=== PATIENT | male | born 1980 | race Caucasian/White ===

== ENCOUNTER 2016-11-14 13:30 | Emergency (ER) | payer OTHER ==
[~2016-11-14] VITALS: Ht 167.6 cm; Wt 104.3 kg
[~2016-11-14 13:30] MED LIST: AC325T PO; ACHD5005 PO; AMOX500C2 PO; CHLO15MO3 PO; CPR500T; CPR500T PO; HYDR-1231 PO; HYDR-229 PO; HYDR1TAB8 OP; NAPR-243 PO; OXYC-12 PO; TRAZ150T42 PO; ZLP10T PO
--- NOTE | 2016-11-14 14:53 | ED GU-Male ---
General Chief Complaint: -Male Stated Complaint: LT GROIN PAIN Nursing Triage Note: Ambulatory to ED 10 with reports of left groin pain x 4 weeks. Patient reports that he saw PCP 2 weeks ago, and was told he had strained his groin and to rest. Patient reports pain is getting worse. Source: patient Exam Limitations: no limitations History of Present Illness Time seen by provider: 14:53 Initial Comments 36-year-old male patient presents to the emergency department complains of left groin pain for 4 weeks. States he was seen by his PCP at [facility] in 2 weeks ago and diagnosed with a left groin strain. Reports pain has progressively gotten worse. Denies any dysuria, frequency, hematuria. Denies any bulging or masses. Works for the [employer] by trade. Does a lot of lifting and bending. Patient does have a history of kidney stones, but states this feels different then kidney stones symptoms. Timing/Duration: getting worse, other (1 month onset) Severity/Quality: sharp (sharp pain with movement), other (aching) Location: groin (left groin) Radiation: scrotal, other (left proximal thigh) Activities at Onset: none Prior Genitourinary Problems: none Modifying Factors: Worsens With Movement Allergies and Home Medications Allergies Coded Allergies: meperidine (Verified Allergy, Unknown, 06/08/06) Home Medications Cyclobenzaprine HCl 10 Mg Tablet, 10 MG PO Q8H PRN for SPASMS, #10 Ref 0 Prescribed by: HOLGER MENA on 11/14/16 1611 Prednisone 20 Mg Tab, 40 MG PO DAILY, #10 Ref 0 Prescribed by: HOLGER MENA on 11/14/16 1611 Tramadol HCl 50 Mg Tablet, 50 MG PO Q4H PRN for pain, #14 Ref 0 Prescribed by: HOLGER MENA on 11/14/16 1612 Constitutional: No chills, No fever, No malaise Respiratory: no symptoms reported Cardiovascular: no symptoms reported Gastrointestinal: No abdominal pain, No diarrhea, No loss of appetite, No nausea, No vomiting Genitourinary: denies burning, denies discharge, denies dysuria, denies frequency, denies flank pain, denies hematuria, pain (left groin pain) Musculoskeletal: No back pain, muscle pain (left proximal thigh) Skin: no symptoms reported Psychiatric/Neurological: Denies Numbness, Denies Paresthesia, Denies Tingling , Denies Weakness All Other Systemes Reviewed Negative Unless Noted: Yes (Negative excepted noted.) Past Oryqspy-Wpizgu-Ogoqhg Hx Patient Social History Alcohol Use: Occasionally Uses Recreational Drug Use: No Smoking Status: Current Everyday Smoker Type Used: Cigarettes 2nd Hand Smoke Exposure: Yes Recent Foreign Travel: No Contact w/Someone Who Travel: No Recent Infectious Disease Expo: No Recent Hopitalizations: Yes Immunizations Up To Date Tetanus Booster (TDap): Less than 5yrs PED Vaccines UTD: Yes Surgeries HX Surgeries: Yes (STONE BASKET x2) Respiratory Hx Respiratory Disorders: No Cardiovascular Hx Cardiac Disorders: Yes Cardiac Disorders: Hypertension Neurological Hx Neurological Disorders: No Reproductive System Hx Reproductive Disorders: No HIV/AIDS: No Genitourinary Hx Genitourinary Disorders: Yes Genitourinary Disorders: Kidney Stones Gastrointestinal Hx Gastrointestinal Disorders: No Musculoskeletal Hx Musculoskeletal Disorders: No Endocrine Hx Endocrine Disorders: No HEENT HX ENT Disorders: No Cancer Hx Cancer: No Psychosocial Hx Psychiatric Problems: No Integumentary HX Skin/Integumentary Disorder: No Blood Transfusions Hx Blood Disorders: No Reviewed Nursing Assessment Reviewed/Agree w Nursing PMH: Yes Family Medical History Significant Family History: No Pertinent Family Hx Physical Exam Vital Signs Vital Sign - Last 12Hours 11/14/16 13:53 Temp 98.5 Pulse 73 Resp 16 B/P (MAP) 148/98 Pulse Ox 98 O2 Delivery Room Air Capillary Refill : Less Than 3 Seconds General Appearance: WD/WN, no apparent distress Neck: supple, normal inspection Cardiovascular: normal peripheral pulses, regular rate, rhythm, no edema, no murmur Respiratory: lungs clear, normal breath sounds, no respiratory distress Gastrointestinal: normal bowel sounds, non tender, soft, no organomegaly, No distended Male: inguinal tenderness (left inguinal tenderness without palpable mass. Very small left inguinal hernia noted. No evidence of obstruction or incarceration.) Back: normal inspection, no CVA tenderness, no vertebral tenderness Extremities: normal range of motion, normal inspection, no pedal edema, normal capillary refill, other (left proximal anterior thigh tender to palpation without evidence of trauma.) Neurologic/Psychiatric: no motor/sensory deficits, alert, normal mood/affect, oriented x 3 Skin: normal color, warm/dry, No rash Progress/Results/Core Measures Results/Orders Lab Results Laboratory Tests Test 11/14/16 15:29 Range/Units Urine Color YELLOW Urine Clarity CLEAR Urine pH 7 5-9 Urine Specific Brilliant 1.015 L 1.016-1.022 Urine Protein 1+ H NEGATIVE Urine Glucose (UA) NEGATIVE NEGATIVE Urine Ketones NEGATIVE NEGATIVE Urine Nitrite NEGATIVE NEGATIVE Urine Bilirubin NEGATIVE NEGATIVE Urine Urobilinogen 4 H NORMAL MG/DL Urine Leukocyte Esterase 1+ H NEGATIVE Urine RBC (Auto) NEGATIVE NEGATIVE Urine RBC RARE /HPF Urine WBC 0-2 /HPF Urine Crystals PRESENT H /LPF Urine Amorphous Sediment FEW MARCIE URATES H /LPF Urine Bacteria NEGATIVE /HPF Urine Casts NONE /LPF Urine Mucus NEGATIVE /LPF Urine Culture Indicated NO My Orders Orders - HOLGER MENA Ibuprofen Tablet (Motrin Tablet) (11/14/16 15:03) Us Abdomen Limited [id number] (11/14/16 15:03) Ua Culture If Indicated (11/14/16 15:07) Vital Signs/I&O Vital Sign - Last 12Hours 11/14/16 11/14/16 13:53 15:21 Temp 98.5 98.5 Pulse 73 Resp 16 B/P (MAP) 148/98 Pulse Ox 98 O2 Delivery Room Air Blood Pressure Mean: 115 Diagnostic Imaging Diagonstic Imaging: Ultrasound Plain Films/CT/US/NM/MRI: abdomen (left groin) Comments FINDINGS: No hernia or fluid collection. Subcentimeter lymph nodes with fatty echogenic jaquan are noted incidentally, not appreciably changed from the remote exam. No suspicious mass or fluid collection. IMPRESSION: There are benign appearing lymph nodes. No hernia, fluid collection, or suspicious mass in the left groin. We note that the old CT does show bilateral nephrolithiasis and, at that exam in 2013, there was an obstructing distal left ureteral stone. Dictated on workstation # [id number] Reviewed: Reviewed by Me (radiology report reviewed by me) Departure Communication Progress Notes Diagnostic findings and laboratory findings discussed with the patient. Patient does now recall having a tick bite just prior to all of these symptoms starting. During the ultrasound patient was noted to be very tender over the enlarged lymph nodes in the left groin. Plan for discharge with Flexeril, prednisone, tramadol, and doxycycline. Patient follow-up with his family care physician for recheck. Impression Impression: Primary Impression: Left inguinal pain Additional Impressions: Inguinal hernia of left side without obstruction or gangrene Tick bite of groin Lymphadenopathy, inguinal Disposition: 01 HOME, SELF-CARE Condition: Improved Departure-Patient Inst. Decision time for Depature: 16:09 Referrals: [facility] (PCP/Family) Primary Care Physician Patient Instructions: Groin Hernia (DC), Groin Strain (DC) Add. Discharge Instructions: All discharge instructions reviewed with patient and/or family. Voiced understanding. Medications as instructed. Tylenol extra strength over-the- counter as directed for pain. Ibuprofen 800 mg by mouth every 8 hours as needed for pain. No lifting, pushing, pulling, bending 5-7 days. Increase activity slowly as tolerated. Return to the emergency department for worsened pain, mass, bulging, inability to urinate, decreased urination, blood in the urine, fever, or any other concerns. Scripts Doxycycline Hyclate (Doxycycline Hyclate) 100 Mg Capsule 100 MG PO BID, #28 CAP 0 Refills Prov: HOLGER MENA 11/14/16 Tramadol HCl (Tramadol HCl) 50 Mg Tablet 50 MG PO Q4H Y for pain, #14 TAB 0 Refills Prov: HOLGER MENA 11/14/16 Prednisone (Prednisone) 20 Mg Tab 40 MG PO DAILY, #10 TAB 0 Refills Prov: HOLGER MENA 11/14/16 Cyclobenzaprine HCl (Cyclobenzaprine HCl) 10 Mg Tablet 10 MG PO Q8H Y for SPASMS, #10 TAB 0 Refills Prov: HOLGER MENA 11/14/16 HOLGER MENA Nov 14, 2016 14:53
[2016-11-14] MEDS ORDERED: IBUPROFEN 800 MG (MOTRIN) TAB PO STA (15:03)
[2016-11-14 15:35] LABS: BILIRUBIN,URINE NEGATIVE (NEGATIVE); KETONES,URINE NEGATIVE (NEGATIVE); LEUKOCYTE ESTERASE ,URINE 1+ (NEGATIVE); NITRITE,URINE NEGATIVE (NEGATIVE); PH,URINE 7 (5-9); PROTEIN,URINE 1+ (NEGATIVE); UROBILINOGEN,URINE 4 MG/DL (NORMAL)
[2016-11-14 15:45] LABS: WBC,URINE 0-2 /HPF
--- NOTE | 2016-11-14 15:57 | Diagnostic Imaging Report ---
PROCEDURE: US Abdomen, limited. TECHNIQUE: Multiple realtime grayscale images were obtained over the abdomen in various projections. INDICATION: Painful lump in the left groin of 4 weeks duration. COMPARISON: No prior exams for comparison. Correlation is made with a CT pelvis of 12/01/2013. FINDINGS: No hernia or fluid collection. Subcentimeter lymph nodes with fatty echogenic jaquan are noted incidentally, not appreciably changed from the remote exam. No suspicious mass or fluid collection. IMPRESSION: There are benign appearing lymph nodes. No hernia, fluid collection, or suspicious mass in the left groin. We note that the old CT does show bilateral nephrolithiasis and, at that exam in 2013, there was an obstructing distal left ureteral stone. Dictated by: Dictated on workstation # [id number]
[2016-11-14] MEDS ORDERED: PRD20T PO (16:11)
[2016-11-14] MEDS ORDERED: CYCL10TA9 PO (16:11)
[2016-11-14] MEDS ORDERED: TRAM50TA2 PO (16:12)
[2016-11-14 16:21] VITALS: BP 144/86
[2016-11-14] MEDS ORDERED: DOXY100C2 PO (16:21)
--- OUTSIDE RECORDS SUMMARY | 2016-11-17 14:57 | XMS REPORT ---
Author Author ERNESTINE WONG [facility] eClinicalWorks Address Unknown Phone Unavailable Care Team Providers Care Pump Stitcher Name Role Phone ERNESTINE WONG CP Unavailable Allergies, Adverse Reactions, Alerts Substance Reaction Event Type Demerol hives Drug Allergy Problems Problem Type Condition Code Onset Dates Condition Status Problem Essential hypertension, benign 401.1 Active Problem Screening examination for pulmonary tuberculosis V74.1 Active Problem Nondependent tobacco use disorder 305.1 Active Assessment Anxiety F41.9 Active Problem Abdominal pain, other specified site 789.09 Active Problem Routine general medical examination at health care facility V70.0 Active Problem Acute sinusitis, unspecified 461.9 Active Problem Anxiety F41.9 Active Problem Anxiety state, unspecified 300.00 Active Problem Abnormal weight gain 783.1 Active Problem Acute pharyngitis 462 Active Problem Unspecified prostatitis 601.9 Active Medications Medication Code System Code Instructions Start Date End Date Status Dosage Lorazepam [facility] [address]-46 0.5 MG Orally Once a day Feb 16, 2015 1 tablet as needed Celexa [facility] [address]-50 20 MG Orally Once a day Feb 16, 2015 1 Fish Oil [facility] [address]-06 1000 MG Orally Once a day 2 capsules Procedures Procedure Coding System Code Date Office Visit, Est Pt., Level 2 CPT-4 03479 Mar 16, 2015 Vital Signs Date/Time: Mar 16, 2015 Temperature 97.8 F Weight 210.6 lbs Height 66 in BMI 33.99 Index Blood Pressure Diastolic 60 mmHg Blood Pressure Systolic 140 mmHg Cardiac Monitoring Heart Rate 82 bpm Results No Known Results Summary Purpose eClinicalWorks Submission
--- OUTSIDE RECORDS SUMMARY | 2016-11-17 14:57 | XMS REPORT | Continuity of Care Document ---
Author Author [facility] Address Unknown Phone Unavailable Allergies Active Description Code Type Severity Reaction Onset Reported/Identified Relationship to Patient Clinical Status Yes meperidine [id number] Drug Allergy Unknown N/A 06/08/2006 Yes Demerol Drug Allergy 03/20/2010 Yes Demerol Drug Allergy N/A N/A 03/20/2010 Medications Problems Date Dx Coded Attending Type Code Diagnosis Diagnosed By 08/06/2009 604.90 EPIDIDYMITIS LEFT 08/06/2009 ERNESTINE WONG MD 604.90 Epididymitis Left 08/06/2009 ERNESTINE WONG MD 604.90 Epididymitis Left 08/06/2009 RONN MAYER APRN 604.90 Epididymitis Left 08/06/2009 VASQUEZ DICKERSON DO 604.90 Epididymitis Left 08/06/2009 ERNESTINE WONG MD 604.90 Epididymitis Left 03/20/2010 V01.84 CONTACT WITH OR EXPOSURE TO MENINGOCOCCUS 03/20/2010 V03.89 MENINGOCOCCAL VACCINE 03/20/2010 ERNESTINE WONG MD V01.84 Contact With Or Exposure To Meningococcus 03/20/2010 ERNESTINE WONG MD V03.89 Meningococcal Vaccine 03/20/2010 ERNESTINE WONG MD V01.84 Contact With Or Exposure To Meningococcus 03/20/2010 ERNESTINE WONG MD V03.89 Meningococcal Vaccine 03/20/2010 RONN MAYER APRN V01.84 Contact With Or Exposure To Meningococcus 03/20/2010 RONN MAYER APRN V03.89 Meningococcal Vaccine 03/20/2010 VASQUEZ DICKERSON DO V01.84 Contact With Or Exposure To Meningococcus 03/20/2010 VASQUEZ DICKERSON DO V03.89 Meningococcal Vaccine 03/20/2010 ERNESTINE WONG MD V01.84 Contact With Or Exposure To Meningococcus 03/20/2010 ERNESTINE WONG MD V03.89 Meningococcal Vaccine 09/27/2010 564.1 IRRITABLE BOWEL SYNDROME 09/27/2010 ERNESTINE WONG MD 564.1 Irritable Bowel Syndrome 09/27/2010 ERNESTINE WONG MD 564.1 Irritable Bowel Syndrome 09/27/2010 RONN MAYER APRN 564.1 Irritable Bowel Syndrome 09/27/2010 VASQUEZ DICKERSON DO 564.1 Irritable Bowel Syndrome 09/27/2010 ERNESTINE WONG MD 564.1 Irritable Bowel Syndrome 11/04/2010 590.2 KIDNEY STONES 11/04/2010 ERNESTINE WONG MD 590.2 Kidney Stones 11/04/2010 ERNESTINE WONG MD 590.2 Kidney Stones 11/04/2010 RONN MAYER APRN 590.2 Kidney Stones 11/04/2010 VASQUEZ DICKERSON DO 590.2 Kidney Stones 11/04/2010 ERNETSINE WONG MD 590.2 Kidney Stones 12/09/2010 592.0 CALCULUS OF KIDNEY 12/09/2010 ERNESTINE WONG MD 592.0 Calculus Of Kidney 12/09/2010 ERNESTINE WONG MD 592.0 Calculus Of Kidney 12/09/2010 RONN MAYER APRN 592.0 Calculus Of Kidney 12/09/2010 VASQUEZ DICKERSON DO 592.0 Calculus Of Kidney 12/09/2010 ERNESTINE WONG MD 592.0 Calculus Of Kidney 01/13/2011 307.42 PERSISTENT DISORDER OF INITIATING OR MAINTAINING SLEEP 01/13/2011 ERNESTINE WONG MD 307.42 Persistent Disorder Of Initiating Or Maintaining Sleep 01/13/2011 ERNESTINE WONG MD 307.42 Persistent Disorder Of Initiating Or Maintaining Sleep 01/13/2011 RONN MAYER APRN 307.42 Persistent Disorder Of Initiating Or Maintaining Sleep 01/13/2011 VASQUEZ DICKERSON DO 307.42 Persistent Disorder Of Initiating Or Maintaining Sleep 01/13/2011 ERNESTINE WONG MD 307.42 Persistent Disorder Of Initiating Or Maintaining Sleep 2012 305.1 NICOTINE DEPENDENCE 2012 401.1 ESSENTIAL HYPERTENSION BENIGN 2012 789.09 flank pain right 2012 ERNESTINE WONG MD 305.1 NICOTINE DEPENDENCE 2012 ERNESTINE WONG MD 401.1 ESSENTIAL HYPERTENSION BENIGN 2012 ERNESTINE WONG MD 789.09 flank pain right 2012 ERNESTINE WONG MD 305.1 NICOTINE DEPENDENCE 2012 ERNESTINE WONG MD 401.1 ESSENTIAL HYPERTENSION BENIGN 2012 ERNESTINE WONG MD 789.09 flank pain right 2012 RONN MAYER APRN R 305.1 NICOTINE DEPENDENCE 2012 RONN MAYER APRN R 401.1 ESSENTIAL HYPERTENSION BENIGN 2012 RONN MAYER APRN R 789.09 flank pain right 2012 DICKERSON DO, VASQUEZ K 305.1 NICOTINE DEPENDENCE 2012 DICKERSON DO, VASQUEZ K 401.1 ESSENTIAL HYPERTENSION BENIGN 2012 DICKERSON DO, VASQUEZ K 789.09 flank pain right 2012 ERNESTINE WONG MD 305.1 NICOTINE DEPENDENCE 2012 ERNESTINE WONG MD 401.1 ESSENTIAL HYPERTENSION BENIGN 2012 ERNESTINE WONG MD 789.09 flank pain right 06/08/2012 ERNESTINE WONG MD 300.00 ANXIETY STATE UNSPECIFIED 06/08/2012 ERNESTINE WONG MD 601.9 PROSTATITIS UNSPECIFIED 06/08/2012 ERNESTINE WONG MD 300.00 ANXIETY STATE UNSPECIFIED 06/08/2012 ERNESTINE WONG MD 601.9 PROSTATITIS UNSPECIFIED 06/08/2012 RONN MAYER APRN R 300.00 ANXIETY STATE UNSPECIFIED 06/08/2012 RONN MAYER APRN R 601.9 PROSTATITIS UNSPECIFIED 06/08/2012 DICKERSON DO, VASQUEZ K 300.00 ANXIETY STATE UNSPECIFIED 06/08/2012 DICKERSON DO, VASQUEZ K 601.9 PROSTATITIS UNSPECIFIED 06/08/2012 ERNESTINE WONG MD 300.00 ANXIETY STATE UNSPECIFIED 06/08/2012 ERNESTINE WONG MD 601.9 PROSTATITIS UNSPECIFIED 06/13/2013 ERNESTINE WONG MD3.1 ABNORMAL WEIGHT GAIN 06/13/2013 RONN MAYER APRN R 783.1 ABNORMAL WEIGHT GAIN 06/13/2013 DICKERSON DO, VASQUEZ K 783.1 ABNORMAL WEIGHT GAIN 06/13/2013 ERNESTINE WONG MD 783.1 ABNORMAL WEIGHT GAIN 01/06/2014 SARAI MAYER APRNIA R 461.9 SINUSITIS ACUTE 01/06/2014 RONN MAYER APRN R 462 ACUTE PHARYNGITIS 01/06/2014 VASQUEZ DICKERSON DO 461.9 SINUSITIS ACUTE 01/06/2014 VASQUEZ DICKERSON DO K 462 ACUTE PHARYNGITIS 01/06/2014 ERNESTINE WONG MD 461.9 SINUSITIS ACUTE 01/06/2014 ERNESTINE WONG MD 46Zoltan ACUTE PHARYNGITIS 03/14/2014 VASQUEZ DICKERSON DO V74.1 TB SCREENING 03/14/2014 ERNESTINE WONG MD V74.1 TB SCREENING 03/27/2014 ERNESTINE WONG MD V70.0 ROUTINE GENERAL MEDICAL EXAMINATION AT A HEALTH CARE FACILITY 07/08/2014 HOLGER DINERO Ot 338.18 OTHER ACUTE POSTOPERATIVE PAIN 07/08/2014 HOLGER DINERO Ot 522.9 PULP/PERIAPICAL DIS NEC Procedures Code [place] [address] UA LONG DIP 05/[address] ABDOMEN & PELVIS STONE SEARCH 06/09/2012 Urology Jun Ansari 59766 ROUTINE VENIPUNCTURE 06/13/2013 15351 CMP 06/13/2013 [id number] GFR CALC (RESULT ONLY) 06/13/2013 89058 TSH 06/13/2013 67609 STREP A (IN-HOUSE) 01/06/2014 83409 TB TEST INTRADERMAL 03/14/2014 Results Test Result Range Complete urinalysis with reflex to culture - 11/14/16 15:29 Urine color determination YELLOW NRG Urine clarity determination CLEAR NRG Urine pH measurement by test strip 7 5- 9 Specific gravity of urine by test strip 1.015 1.016-1.022 Urine protein assay by test strip, semi-quantitative 1+ NEGATIVE Urine glucose detection by automated test strip NEGATIVE NEGATIVE Erythrocytes detection in urine sediment by light microscopy NEGATIVE NEGATIVE Urine ketones detection by automated test strip NEGATIVE NEGATIVE Urine nitrite detection by test strip NEGATIVE NEGATIVE Urine total bilirubin detection by test strip NEGATIVE NEGATIVE Urine urobilinogen measurement by automated test strip (mass/volume) 4 mg/dL NORMAL Urine leukocyte esterase detection by dipstick 1+ NEGATIVE Automated urine sediment erythrocyte count by microscopy (number/high power field) RARE NRG Automated urine sediment leukocyte count by microscopy (number/high power field ) [HPF] NRG Bacteria detection in urine sediment by light microscopy NEGATIVE NRG Crystals detection in urine sediment by light microscopy PRESENT NRG Casts detection in urine sediment by light microscopy NONE NRG Mucus detection in urine sediment by light microscopy NEGATIVE NRG Complete urinalysis with reflex to culture NO NRG Amorphous sediment detection in urine sediment by light microscopy FEW MARCIE URATES NRG Encounters ACCT No. Visit Date/Time Discharge Status Pt. Type Provider Facility Loc./Unit Complaint [id number] 03/27/2014 15:59:00 03/27/2014 23: 59:59 CLS Outpatient ERNESTINE WONG MD [id number] 03/14/2014 12:26:00 03/14/2014 23: 59:59 CLS Outpatient VASQUEZ DICKERSON DO [id number] 01/06/2014 12:11:00 01/06/2014 23: 59:59 CLS Outpatient RONN MAYER APRN [id number] 06/13/2013 11:21:00 06/13/2013 23: 59:59 CLS Outpatient ERNESTINE WONG MD [id number] 06/08/2012 16:22:00 06/08/2012 23: 59:59 CLS Outpatient ERNESTINE WONG MD [id number] 2012 14:50:00 2012 23: 59:59 CLS Outpatient
--- OUTSIDE RECORDS SUMMARY | 2016-11-17 14:57 | XMS REPORT ---
Author MARIA DE JESUS Davis [facility] eClinicalWorks Address Unknown Phone Unavailable Care Team Providers Care Implementation Coordinator Name Role Phone MARIA DE JESUS HORN CP Unavailable Allergies, Adverse Reactions, Alerts Substance Reaction Event Type Demerol hives Drug Allergy Problems Problem Type Condition Code Onset Dates Condition Status Problem Essential hypertension, benign 401.1 Active Problem Screening examination for pulmonary tuberculosis V74.1 Active Problem Nondependent tobacco use disorder 305.1 Active Assessment Acute bilateral thoracic back pain M54.6 Active Problem Abdominal pain, other specified site [...] Instructions Start Date End Date Status Dosage Cyclobenzaprine HCl [facility] [address]-43 10 mg Orally 2 times a day (will make drowsy) Apr 09, 2016 Apr 19, 2016 1 tablet Ibuprofen [facility] [place] [address]-45 800 MG Orally Three times a day Apr 09, 2016 Apr 19, 2016 1 tablet Procedures Procedure Coding System Code Date THER/PROPH/DIAG INJ, SC/IM CPT-4 28188 Apr 09, 2016 Office Visit, Est Pt., Level 3 CPT-4 69810 Apr 09, 2016 TORADOL (IM) 15 MG/ML (UP TO 15 MG) CPT-4 J1885 Apr 09, 2016 Vital Signs Date/Time: Apr 09, 2016 Cardiac Monitoring Heart Rate 104 bpm Weight 225.6 lbs Height 66 in BMI 36.41 Index Blood Pressure Diastolic 92 mmHg Blood Pressure Systolic 150 mmHg Results No Known Results Summary Purpose eClinicalWorks Submission
== END 2016-11-14 16:21 | disposition home or self-care (01) ==
LOC: EDUNIT# 13:30 → ER 13:34
DX: S30.861A Insect bite (nonvenomous) of abdominal wall, initial encounter (principal); K40.90 Unilateral inguinal hernia, without obstruction or gangrene, not specified as recurrent; I10 Essential (primary) hypertension; F17.210 Nicotine dependence, cigarettes, uncomplicated; Z87.442 Personal history of urinary calculi; W57.XXXA Bitten or stung by nonvenomous insect and other nonvenomous arthropods, initial encounter
CPT/HCPCS: 76705; 81000; 99282

== ENCOUNTER → 2018-05-26 | Outpatient (CLI) | payer BC ==
[~2018-05-26] MED LIST changes: +CYCL10TA9 PO; +DOXY100C2 PO; +PRD20T PO; +TRAM50TA2 PO
--- NOTE | 2018-05-26 13:38 | Diagnostic Imaging Report ---
PROCEDURE: CT urinary tract, rule out kidney stone. TECHNIQUE: Multiple contiguous axial images were obtained through the abdomen and pelvis without the use of intravenous contrast. INDICATION: History of nephrolithiasis. COMPARISON: Exam compared to 12/01/2013. FINDINGS: There has been resolution of left hydroureteronephrosis. The previous 5.1 mm distal left ureteral stone is believed passed in the interim. There is however a new stone at that level just proximal to the left UVJ, that calculus measures 2.7 mm and is seen best on image 120 series 2. This stone results in no proximal collecting system or ureteral dilatation. This is associated with an interval reduction in the intrarenal left-sided stone burden. The largest residual intrarenal stone in the left kidney is within mid calyx measuring 5.2 mm. Multiple prominent right renal calculi are nonobstructing and showed no significant change. The largest right-sided stone at the middle third of the kidney measured 7.2 mm. The right ureter is negative. No stones within the urinary bladder lumen. No perinephric or periureteric edema. The appendix is normal. The liver, gallbladder, spleen, adrenals, and pancreas are unremarkable. The aorta is nonaneurysmal. There is no bowel obstruction. No ascites, abscess, hematoma, or fluid collection. IMPRESSION: 1. A previous obstructing distal left ureteral stone has since passed. There is resolution of previous left hydroureteronephrosis, however the smaller stone in the distal left ureter proximal to the UVJ has become apparent without resultant upstream hydroureteronephrosis. 2. Reduction in intrarenal stone burden in the left kidney. Stable nonobstructing intrarenal stones on the right. Dictated by: Dictated on workstation # [id number]
== END ==
LOC: RAD 12:10
PROVIDERS: ATTEND Nurse Practitioner Primary Care
DX: N20.2 Calculus of kidney with calculus of ureter (principal)
CPT/HCPCS: 74176

== ENCOUNTER 2019-06-06 08:13 | Emergency (ER) | payer BC ==
[~2019-06-06] VITALS: Ht 167.7 cm; Wt 106.6 kg
[~2019-06-06 08:13] MED LIST changes: -TRAM50TA2 PO; +TRM50T PO
--- NOTE | 2019-06-06 09:03 | Diagnostic Imaging Report ---
Indication: Fall with pain in the left wrist. Time of exam 8:47 AM 3 views of the left wrist were obtained. The distal radius and ulna appear to be intact. No carpal fracture is seen. There is some sclerosis and volume loss involving the lunate, consistent with Kienb?ck's disease. Navicular is unremarkable. Visualized metacarpals are unremarkable. 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 No acute fracture is detected. Dictated by: Dictated on workstation # [id number]
[2019-06-06] MEDS ORDERED: MELO15TA14 PO (09:18)
--- NOTE | 2019-06-06 09:19 | ED Upper Extremity ---
General Chief Complaint: Upper Extremity Stated Complaint: L HAND INJ Nursing Triage Note: PT AMB TO RM 8 WITH COMPLAINT OF LEFT WRIST INJURY. PT STATES HE HAS FALLEN THREE TIMES SINCE THURSDAY AFTER SLIPPING ON ICE. Nursing Sepsis Screen: No Definite Risk Source: patient History of Present Illness Date Seen by Provider: Jun 06, 2019 Time Seen by Provider: 08:16 Initial Comments PT ARRIVES VIA POV FROM HOME C/O LEFT WRIST INJURY STATES HE SLIPPED ON THE ICE AND FELL TWICE ON THURSDAY, AND DID THE SAME THING AGAIN THIS MORNING. EACH TIME HE CAUGHT HIMSELF ON OUTSTRETCHED LEFT HAND C/O PAIN TO ULNAR ASPECT OF LEFT WRIST NO PARESTHESIAS OR MOTOR DEFICITS HAS SLIGHT SWELLING TO THE AREA NO PRIOR INJURY TO THIS HAND OR WRIST PT IS RIGHT HANDED TOOK 1 DOSE OF MOTRIN LAST PM HE DENIES ANY OTHER INJURIES FROM THESE FALLS. PCP: JOLEEN Allergies and Home Medications Allergies Coded Allergies: meperidine (Verified Allergy, Unknown, 06/08/06) Home Medications Cyclobenzaprine HCl 10 Mg Tablet, 10 MG PO Q8H PRN for SPASMS Prescribed by: HOLGER MENA on 11/14/16 161 Doxycycline Hyclate 100 Mg Capsule, 100 MG PO BID Prescribed by: HOLGER MENA on 11/14/16 162 Meloxicam 15 Mg Tablet, 15 MG PO DAILY Prescribed by: DALE DESOUZA on 06/06/19 0918 Prednisone 20 Mg Tab, 40 MG PO DAILY Prescribed by: HOLGER MENA on 11/14/16 161 Tramadol HCl 50 Mg Tablet, 50 MG PO Q4H PRN for pain Prescribed by: HOLGER MENA on 11/14/16 161 Patient Home Medication List Home Medication List Reviewed: Yes Review of Systems Constitutional: no symptoms reported Musculoskeletal: see HPI Skin: no symptoms reported Psychiatric/Neurological: No Symptoms Reported Past Hvqhotb-Atwtqk-Zfhxzi Hx Past Med/Social Hx: Reviewed and Corrections made Patient Social History Alcohol Use: Occasionally Uses Number of Drinks Today: AA Alcohol Beverage of Choice: Beer Recreational Drug Use: No Smoking Status: Current Everyday Smoker (1/2 PPD) Type Used: Cigarettes (1/2 PPD) 2nd Hand Smoke Exposure: Yes Recent Foreign Travel: No Contact w/Someone Who Travel: No Recent Infectious Disease Expo: No Recent Hopitalizations: No Immunizations Up To Date Tetanus Booster (TDap): Less than 5yrs PED Vaccines UTD: Yes Past Medical History Surgeries: Yes (KIDNEY STONE BASKET REMOVAL x 2) Renal Respiratory: No Cardiac: Yes Hypertension Neurological: No Reproductive Disorders: No HIV/AIDS: No Genitourinary: Yes Kidney Stones Gastrointestinal: No Musculoskeletal: No Endocrine: No HEENT: No Cancer: No Psychosocial: No Integumentary: No Blood Disorders: No Family Medical History No Pertinent Family Hx Physical Exam Vital Signs Vital Signs - First Documented 06/06/19 08:17 Pulse 82 Resp 20 B/P (MAP) 150/99 (116) Pulse Ox 97 O2 Delivery Room Air Capillary Refill : Less Than 3 Seconds Height, Weight, BMI Height: 5'6.00" Weight: 230lbs. oz. 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 CHRONIC CHANGES TO LUNATE BONE, C/W OSTEONECROSIS--PER RADIOLOGIST REPORT AT 0905 Reviewed: Reviewed by Me Departure Impression Primary Impression: Left wrist sprain Disposition: 01 HOME, SELF-CARE Condition: Stable Departure-Patient Inst. [facility] Primary Care Physician Patient Instructions: Wrist Sprain (DC) Add. Discharge Instructions: ICE TO SORE AREA AT 20 MINUTE INTERVALS ELEVATE HAND MUCH POSSIBLE WEAR SPLINT FOR COMFORT FOLLOW UP WITH YOUR DR IN 1 WEEK IF NO BETTER All discharge instructions reviewed with patient and/or family. Voiced understanding. Scripts Meloxicam (Mobic) 15 Mg Tablet 15 MG PO DAILY, #10 TAB Prov: DALE DESOUZA DO 06/06/19 Work/School Note: Work Release Form Date Seen in the Emergency Department: Jun 06, 2019 Return to Work: Jun 09, 2019 Restrictions: No Restrictions DALE DESOUZA DO Jun 06, 2019 09:19
[2019-06-06 09:33] VITALS: BP 123/74
== END 2019-06-06 09:33 | disposition home or self-care (01) ==
LOC: EDUNIT# 08:13 → ER 08:14
DX: S63.502A Unspecified sprain of left wrist, initial encounter (principal); I10 Essential (primary) hypertension; F17.210 Nicotine dependence, cigarettes, uncomplicated; Z87.442 Personal history of urinary calculi; Z88.5 Allergy status to narcotic agent; Z79.52 Long term (current) use of systemic steroids; W00.9XXA Unspecified fall due to ice and snow, initial encounter
CPT/HCPCS: 73110

== ENCOUNTER 2020-06-25 09:04 | Emergency (ER) | payer BC ==
[~2020-06-25] VITALS: Ht 167 cm; Wt 91.0 kg
[~2020-06-25 09:04] MED LIST changes: +MELO15TA14 PO
[2020-06-25] MEDS ORDERED: KETOROLAC 30 MG/ML VIAL ONE (09:15)
[2020-06-25] MEDS ORDERED: KETOROLAC 30 MG/ML VIAL IVP STA (09:18)
[2020-06-25 09:30] LABS: BASOPHILS % (AUTO) 0 % (0-10); EOSINOPHILS # (AUTO) 0.1 10^3/uL (0.0-0.3); EOSINOPHILS % (AUTO) 2 % (0-10); HEMATOCRIT 49 % (40-54); HEMOGLOBIN 16.5 g/dL (13.3-17.7); LYMPHOCYTES # (AUTO) 1.8 10^3/uL (1.0-4.0); LYMPHOCYTES % (AUTO) 26 % (12-44); MEAN CORPUSCULAR HEMOGLOBIN 31 pg (25-34); MEAN CORPUSCULAR HGB CONC 34 g/dL (32-36); MEAN CORPUSCULAR VOLUME 92 fL (80-99); MONOCYTES # (AUTO) 0.5 10^3/uL (0.0-1.0); MONOCYTES % (AUTO) 7 % (0-12); NEUTROPHILS # (AUTO) 4.3 10^3/uL (1.8-7.8); NEUTROPHILS % (AUTO) 65 % (42-75); PLATELET COUNT 251 10^3/uL (130-400); WHITE BLOOD COUNT 6.7 10^3/uL (4.3-11.0)
[2020-06-25] MEDS ORDERED: LACTATED RINGERS 1,000 ML IV ONE (09:30)
--- NOTE | 2020-06-25 09:30 | ED Back Pain ---
General Chief Complaint: Back Problems Stated Complaint: POSSIBLE KIDNEY STONE Source of Information: Patient Exam Limitations: No Limitations (JACKIE DELAROSA) History of Present Illness Date Seen by Provider: Jun 25, 2020 Time Seen by Provider: 09:10 Initial Comments Pt here with right flank and back pain that started about 30min ago while at work. He reports a history of 30 or so kidney stones with the last one about 3 months ago. He states he notice some blood in the urine 2 days ago and expected to have a stone soon, but the pain was more severe today. He normally takes Flomax and drinks lots of fluids to help pass the stone. He has been given some pain medication in the past, but states he normally does not take it. He has not taken anything today for the pain yet as he was at work and came straight here when the pain got severe. He denies any trouble urinating, dysuria, constipation, abdominal pain, chest pain, trouble breathing, fever or chills. Timing/Duration: 1/2 Hour Severity: Moderate Pain/Injury Location: Back (Right Flank) Radiation: Other (Left back) Modifying Factors: Worse With Jarring, Worse With Movement Associated Symptoms: No fever, No numbness in legs/feet, No sensory/motor loss, No loss of bladder control, No loss of bowel control (JACKIE DELAROSA) Allergies and Home Medications Allergies Coded Allergies: meperidine (Verified Allergy, Unknown, 06/08/06) Home Medications Cyclobenzaprine HCl 10 Mg Tablet, 10 MG PO Q8H PRN for SPASMS Prescribed by: HOLGER MENA on 11/14/16 161 Doxycycline Hyclate 100 Mg Capsule, 100 MG PO BID Prescribed by: HOLGER MENA on 11/14/16 162 Meloxicam 15 Mg Tablet, 15 MG PO DAILY Prescribed by: DALE DESOUZA on 06/06/19 0918 Prednisone 20 Mg Tab, 40 MG PO DAILY Prescribed by: HOLGER MENA on 11/14/16 161 Tramadol HCl 50 Mg Tablet, 50 MG PO Q4H PRN for pain Prescribed by: HOLGER MENA on 11/14/16 161 Patient Home Medication List Home Medication List Reviewed: Yes (SONA BENTLEY MD) Review of Systems Constitutional: No chills, No dizziness, No fever EENTM: No vision loss, No nose congestion Respiratory: No cough, No short of breath Cardiovascular: No chest pain, No edema Gastrointestinal: No abdominal pain, No constipation, No diarrhea, No nausea, No vomiting Genitourinary: No dysuria; hematuria; No incontinence Musculoskeletal: back pain (Right flank); No neck pain Skin: no symptoms reported Psychiatric/Neurological: Denies Headache, Denies Numbness, Denies Paresthesia, Denies Tingling (JACKIE DELAROSA) Constitutional: No chills, No dizziness, No fever Respiratory: No cough, No short of breath Gastrointestinal: No abdominal pain, No nausea, No vomiting Genitourinary: hematuria, pain (Right flank) (SONA BENTLEY MD) Past Uarcoqm-Zxxxwr-Xyotzt Hx Past Med/Social Hx: Reviewed Nursing Past Med/Soc Hx (SONA BENTLEY MD) Patient Social History Alcohol Beverage of Choice: Beer Type Used: Cigarettes 2nd Hand Smoke Exposure: Yes Recent Hopitalizations: No (JACKIE DELAROSA) Immunizations Up To Date Tetanus Booster (TDap): Less than 5yrs PED Vaccines UTD: Yes (JACKIE DELAROSA) Past Medical History Surgeries: Yes (KIDNEY STONE BASKET REMOVAL x 2) Renal Respiratory: No Cardiac: Yes Hypertension Neurological: No Reproductive Disorders: No HIV/AIDS: No Genitourinary: Yes Kidney Stones Gastrointestinal: No Musculoskeletal: No Endocrine: No HEENT: No Cancer: No Psychosocial: No Integumentary: No Blood Disorders: No (JACKIE DELAROSA) Family Medical History Reviewed Nursing Family Hx (SONA BENTLEY MD) No Pertinent Family Hx (JACKIE DELAROSA) Physical Exam Vital Signs Vital Signs - First Documented 06/25/20 09:07 Temp 35.6 Pulse 81 Resp 18 B/P (MAP) 145/89 (107) Pulse Ox 95 O2 Delivery Room Air (SONA BENTLEY MD) Vital Signs Capillary Refill : (JACKIE DELAROSA) Height, Weight, BMI Height: 5'6.00" Weight: 230lbs. oz. 104.525254wb; 37.00 BMI Method:Stated General Appearance: WD/WN, Moderate Distress HEENT: PERRL/EOMI, Pharynx Normal Neck: Full Range of Motion, Normal Inspection, Non Tender, Supple Cardiovascular: Regular Rate, Rhythm, No Edema, Normal Peripheral Pulses Respiratory: Chest Non Tender, Lungs Clear, Normal Breath Sounds Gastrointestinal: Non Tender, Soft Back: Normal Inspection, No Vertebral Tenderness, CVA Tenderness (R) Extremity: Normal Capillary Refill, Normal Inspection, Normal Range of Motion, No Calf Tenderness, No Pedal Edema Neurologic/Psychiatric: Alert, Oriented x3, No Motor/Sensory Deficits, Normal Mood/Affect Skin: Normal Color, Warm/Dry ([place],JACKIE FRANCES) General Appearance: WD/WN, Moderate Distress Cardiovascular: Regular Rate, Rhythm, No Murmur Respiratory: Lungs Clear, Normal Breath Sounds Gastrointestinal: Non Tender, Soft Back: No Vertebral Tenderness, CVA Tenderness (R) Neurologic/Psychiatric: Alert, Oriented x3 Skin: Normal Color, Warm/Dry (SONA BENTLEY MD) Progress/Results/Core Measures Results/Orders Lab Results Laboratory Tests Test 06/25/20 09:02 06/25/20 09:35 Range/Units White Blood Count 6.7 4.3-11.0 10^3/uL Red Blood Count 5.34 4.30-5.52 10^6/uL Hemoglobin 16.5 13.3-17.7 g/dL Hematocrit 49 40-54 % Mean Corpuscular Volume 92 80-99 fL Mean Corpuscular Hemoglobin 31 25-34 pg Mean Corpuscular Hemoglobin Concent 34 32-36 g/dL Red Cell Distribution Width 12.0 10.0-14.5 % Platelet Count 251 130-400 10^3/uL Mean Platelet Volume 10.0 9.0-12.2 fL Immature Granulocyte % (Auto) 0 % Neutrophils (%) (Auto) 65 42-75 % Lymphocytes (%) (Auto) 26 12-44 % Monocytes (%) (Auto) 7 0-12 % Eosinophils (%) (Auto) 2 0-10 % Basophils (%) (Auto) 0 0-10 % Neutrophils # (Auto) 4.3 1.8-7.8 10^3/uL Lymphocytes # (Auto) 1.8 1.0-4.0 10^3/uL Monocytes # (Auto) 0.5 0.0-1.0 10^3/uL Eosinophils # (Auto) 0.1 0.0-0.3 10^3/uL Basophils # (Auto) 0.0 0.0-0.1 10^3/uL Immature Granulocyte # (Auto) 0.0 0.0-0.1 10^3/uL Sodium Level 139 135-145 MMOL/L Potassium Level 5.0 3.6-5.0 MMOL/L Chloride Level 104 98-107 MMOL/L Carbon Dioxide Level 27 21-32 MMOL/L Anion Gap 8 5-14 MMOL/L Blood Urea Nitrogen 12 7-18 MG/DL Creatinine 1.12 0.60-1.30 MG/DL Estimat Glomerular Filtration Rate > 60 BUN/Creatinine Ratio 11 Glucose Level 91 70-105 MG/DL Calcium Level 9.6 8.5-10.1 MG/DL Corrected Calcium 8.5-10.1 MG/DL Total Bilirubin 0.5 0.1-1.0 MG/DL Aspartate Amino Transf (AST/SGOT) 22 5-34 U/L Alanine Aminotransferase (ALT/SGPT) 25 0-55 U/L Alkaline Phosphatase 81 40-136 U/L Total Protein 7.8 6.4-8.2 GM/DL Albumin 4.8 H 3.2-4.5 GM/DL Urine Color YELLOW Urine Clarity CLEAR Urine pH 6.5 5-9 Urine Specific Ulysses 1.015 L 1.016-1.022 Urine Protein NEGATIVE NEGATIVE Urine Glucose (UA) NEGATIVE NEGATIVE Urine Ketones NEGATIVE NEGATIVE Urine Nitrite NEGATIVE NEGATIVE Urine Bilirubin NEGATIVE NEGATIVE Urine Urobilinogen 0.2 < = 1.0 MG/DL Urine Leukocyte Esterase NEGATIVE NEGATIVE Urine RBC (Auto) 3+ H NEGATIVE Urine RBC 25-50 H /HPF Urine WBC NONE /HPF Urine Squamous Epithelial Cells NONE /HPF Urine Crystals NONE /LPF Urine Bacteria NEGATIVE /HPF Urine Casts NONE /LPF Urine Mucus NEGATIVE /LPF Urine Culture Indicated NO (SONA BENTLEY MD) My Orders Orders - SONA BENTLEY MD Ketorolac Injection (Toradol Injection) (06/25/20 09:18) Ed Iv/Invasive Line Start (06/25/20 09:18) Lactated Ringers (Lr 1000 Ml Iv Solution (06/25/20 09:30) Cbc With Automated Diff (06/25/20 09:18) Comprehensive Metabolic Panel (06/25/20 09:18) Ua Culture If Indicated (06/25/20 09:18) Ketorolac Injection (Toradol Injection) (06/25/20 09:15) (SONA BENTLEY MD) Medications Given in ED Current Medications Medications Dose Ordered Sig/Mellisa Route Start Time Stop Time Status Last Admin Dose Admin Lactated Ringer's 1,000 ml @ 0 mls/hr Q0M ONCE IV 06/25/20 09:30 06/25/20 09:31 DC 06/25/20 09:22 1,000 MLS/HR (SONA BENTLEY MD) Vital Signs/I&O 06/25/20 09:07 Temp 35.6 Pulse 81 Resp 18 B/P (MAP) 145/89 (107) Pulse Ox 95 O2 Delivery Room Air (SONA BENTLEY MD) Progress Progress Note : Time: 09:15 Progress Note Pt states right flank pain is very similar to previous pain with his kidney stones, significant history of nephrolithiasis will obtain UA, CBC, CMP, will give Toradol for pain, consider CT Abd/Pelvis pending lab results, if UA indicates stones and kidney function is good will hold on CT scan at this time. Pt is in agreement with plan at this time. 1L bolus of fluids started. (JACKIE DELAROSA) Progress Note : Progress Note I have seen and evaluated patient and agree with above except as indicated. I have directed the plan of care. Patient is here with right flank pain and has had some hematuria over the past couple of days. Flank pain onset acutely today while working and walking. Pain was worse than typical for his kidney stones but otherwise feels like his kidney stones. Usually gets 1 a year. Has had to have 2 lithotripsies in the past. Denies fever or chills. Denies nausea or vomiting currently. Evaluation as above. Plan for IV, lab's, LR 1 L bolus and Toradol 30 mg IV ordered. This did significantly help his pain. I did discuss with him regarding further imaging. We will hold at this point as he is doing better and otherwise typical for his kidney stones. He states he usually passes them on his own. We will initiate outpatient treatment with Flomax, cephalexin and a few hydrocodone for pain. Discharged home with return precautions. Patient verbalized understanding of instructions and agreement with plan. (SONA BENTLEY MD) Departure Impression Primary Impression: Kidney stone on right side Disposition: HOME, SELF-CARE Condition: Stable Departure-Patient Inst. Decision time for Depature: 10:02 (SONA BENTLEY MD) Referrals: [facility] (PCP) Primary Care Physician ERNESTINE PENA (Family) Primary Care Physician Patient Instructions: Kidney Stones (DC) Add. Discharge Instructions: All discharge instructions reviewed with patient and/or family. Voiced understanding. You may continue ibuprofen 600 mg every 8 hours as needed for pain. Take other medications as directed. Drink plenty of fluids. Follow-up with your urologist or the one listed for recheck and further evaluation. Return for worse pain, fever, vomiting, weakness, breathing problems or other concerns as needed. Scripts Tamsulosin HCl (Flomax) 0.4 Mg Cap 0.4 MG PO DAILY, #30 CAP 0 Refills Prov: SONA BENTLEY MD 06/25/20 Hydrocodone/Acetaminophen (Hydrocodone-Acetamin 5-325 mg) 1 Each Tablet 1 TAB PO Q4H PRN for PAIN-MODERATE (5-7) for 3 Days, #14 TAB 0 Refills Prov: SONA BENTLEY MD 06/25/20 Cephalexin (Cephalexin) 500 Mg Capsule 500 MG PO BID for 7 Days, #14 CAP 0 Refills Prov: SONA BENTLEY MD 06/25/20 JACKIE DELAROSA Jun 25, 2020 09:30 SONA BENTLEY MD Jun 25, 2020 10:03
[2020-06-25 09:40] LABS: ALBUMIN 4.8 GM/DL (3.2-4.5); CHLORIDE 104 MMOL/L (98-107); SODIUM 139 MMOL/L (135-145)
[2020-06-25 09:41] LABS: CALCIUM 9.6 MG/DL (8.5-10.1)
[2020-06-25 09:42] LABS: GLUCOSE 91 MG/DL (70-105); TOTAL PROTEIN 7.8 GM/DL (6.4-8.2)
[2020-06-25 09:44] LABS: BILIRUBIN,TOTAL 0.5 MG/DL (0.1-1.0); CARBON DIOXIDE 27 MMOL/L (21-32)
[2020-06-25 09:44] LABS: BILIRUBIN,URINE NEGATIVE (NEGATIVE); CLARITY,URINE CLEAR; COLOR,URINE YELLOW; GLUCOSE, URINE (UA) NEGATIVE (NEGATIVE); KETONES,URINE NEGATIVE (NEGATIVE); LEUKOCYTE ESTERASE ,URINE NEGATIVE (NEGATIVE); NITRITE,URINE NEGATIVE (NEGATIVE); PH,URINE 6.5 (5-9); PROTEIN,URINE NEGATIVE (NEGATIVE)
[2020-06-25 09:46] LABS: ALKALINE PHOSPHATASE 81 U/L (40-136); CREATININE SERUM 1.12 MG/DL (0.60-1.30); GFR ESTIMATED > 60
[2020-06-25 09:47] LABS: BUN/CREATININE RATIO 11
[2020-06-25 09:49] LABS: BACTERIA,URINE NEGATIVE /HPF; RBC,URINE 25-50 /HPF
[2020-06-25 09:49] LABS: ALANINE AMINOTRANSFERASE 25 U/L (0-55)
[2020-06-25] MEDS ORDERED: CEPH500C PO (10:05)
[2020-06-25] MEDS ORDERED: ACHD5005 PO (10:05)
[2020-06-25] MEDS ORDERED: TMSL.4C PO (10:05)
[2020-06-25 10:20] VITALS: BP 145/89
== END 2020-06-25 10:19 | disposition home or self-care (01) ==
LOC: EDUNIT# 09:04 → ER 09:06
DX: N20.0 Calculus of kidney (principal); Z77.22 Contact with and (suspected) exposure to environmental tobacco smoke (acute) (chronic); Z88.5 Allergy status to narcotic agent; Z79.52 Long term (current) use of systemic steroids
CPT/HCPCS: 36415; 80053; 81000; 85025

== ENCOUNTER → 2020-08-03 | Outpatient (CLI) | payer BC ==
[~2020-08-03] MED LIST changes: +CEPH500C PO; +TMSL.4C PO
--- NOTE | 2020-08-03 09:58 | Diagnostic Imaging Report ---
HISTORY: Kidney stone COMPARISON: CT from 05/26/2018 TECHNIQUE: Frontal view of the abdomen. FINDINGS: There is a calcification in the superior pole of the right kidney which measures up to 9 mm in diameter. There are multiple phleboliths in the pelvis. No distended loops of bowel are seen. There is no large collection of free air. No acute osseous abnormality is seen. IMPRESSION: 1. Calculus in the superior pole of the right kidney. Dictated by: Dictated on workstation # [id number]
== END ==
LOC: RAD 08:21
PROVIDERS: ATTEND Urology
DX: N20.0 Calculus of kidney (principal)
CPT/HCPCS: 74018

== ENCOUNTER → 2020-08-10 | Outpatient (CLI) | payer BC ==
--- NOTE | 2020-08-10 12:58 | Diagnostic Imaging Report ---
PROCEDURE: CT abdomen and pelvis without contrast. TECHNIQUE: Multiple contiguous axial images were obtained through the abdomen and pelvis without the use of intravenous contrast. Auto Exposure Controls were utilized during the CT exam to meet ALARA standards for radiation dose reduction. INDICATION: Hematuria and right flank pain. Comparison is made with prior CT from 05/26/2018. FINDINGS: The lung bases are clear. Liver and gallbladder are unremarkable. There is no biliary duct dilatation. Pancreas and spleen are unremarkable. No adrenal mass is detected. A nonobstructing calculi in both kidneys again noted. Largest calculus is on the right measuring 6 mm. There is a calculus located in the distal right ureter near the UVJ measuring 5 mm. There is some mild right-sided hydroureter. Left ureter is unremarkable. No bladder calculi are seen. Numerous calcifications in the pelvis are noted consistent with phleboliths. Prostate is enlarged. Small and large bowel loops are normal caliber. There is no ascites. Aorta is nonaneurysmal. IMPRESSION: 1. Bilateral nonobstructing nephrolithiasis. In addition, there is a 5 mm calculus in the distal right ureter near UVJ with mild right hydroureter. 2. Prostatomegaly. Dictated by: Dictated on workstation # [id number]
== END ==
LOC: RAD 12:45
PROVIDERS: ATTEND Urology
DX: N20.2 Calculus of kidney with calculus of ureter (principal); N40.0 Benign prostatic hyperplasia without lower urinary tract symptoms
CPT/HCPCS: 74176

== ENCOUNTER 2020-08-13 15:13 | Outpatient (CLI) | payer BC ==
[~2020-08-13] VITALS: Ht 167.7 cm; Wt 89.5 kg
[2020-08-14] MEDS ORDERED: TRM50T PO (08:19)
[2020-08-14] MEDS ORDERED: TMSL.4C PO (08:19)
[2020-08-14] MEDS ORDERED: SULF1TAB35 PO (08:19)
[2020-08-14] MEDS ORDERED: PHEN-640 PO (09:16)
== END 2020-08-13 15:39 | disposition home or self-care (01) ==
LOC: PREOP 15:13
PROVIDERS: ATTEND Urology
DX: Z01.818 Encounter for other preprocedural examination (principal)

== ENCOUNTER 2020-08-14 06:03 | Day surgery (SDC) | payer BC ==
[~2020-08-14] VITALS: Ht 171 cm; Wt 88.4 kg
[2020-08-14] VITALS (9 sets, daily range): BP systolic 90–128; BP diastolic 50–83
[2020-08-14] MEDS ORDERED: cefTRIAXone FOR IV USE 1,000 MG in WATER (STERILE) FOR INJECTION 10 ML IV ONE (06:15)
[2020-08-14] MEDS ORDERED: LACTATED RINGERS 1,000 ML IV PRN (06:30)
[2020-08-14] MEDS ORDERED: CATHETER FLUSH 10 ML SYR IV PRN (06:30)
[2020-08-14] MEDS ORDERED: SEVOFLURANE (ULTANE) 15 ML INHAL SOLN ONE ×3 (06:31→07:43)
[2020-08-14] MEDS ORDERED: ONDANSETRON 4 MG/2 ML (SDV) Z0FRAN ONE ×2 (06:31→06:50)
[2020-08-14] MEDS ORDERED: proPOfol 200 MG/20 ML (DIPRIVAN) VIAL IV ONE (06:31)
[2020-08-14] MEDS ORDERED: LIDOCAINE PF 2% 5 ML (XYLOCAINE) VIAL ONE (06:31)
[2020-08-14] MEDS ORDERED: MIDAZOLAM 2 MG/2 ML (VERSED) VIAL ONE (06:32)
[2020-08-14] MEDS ORDERED: fentaNYL INJ 100 MCG/2 ML AMP ONE (06:32)
[2020-08-14] MEDS ORDERED: SCOPOLAMINE 1.5 MG (TRANSDERM-SCOP) PATCH ONE (06:49)
[2020-08-14] MEDS ORDERED: FAMOTIDINE 20MG/2ML IV (PEPCID) ONE (06:49)
[2020-08-14] MEDS ORDERED: PANTOPRAZOLE 40 MG (PROTONIX) VIAL IV ONE (07:00)
[2020-08-14] MEDS ORDERED: ONDANSETRON 4 MG/2 ML (SDV) Z0FRAN IVP ONE (07:00)
[2020-08-14] MEDS ORDERED: SCOPOLAMINE 1.5 MG (TRANSDERM-SCOP) PATCH TD ONE (07:00)
--- NOTE | 2020-08-14 07:02 | Progress Note-Pre Operative ---
Pre-Operative Progress Note H&P Reviewed The H&P was reviewed, patient examined and no changes noted. Date Seen by Provider: Aug 14, 2020 Time Seen by Provider: 07:01 Date H&P Reviewed: Aug 14, 2020 Time H&P Reviewed: 07:01 Pre-Operative Diagnosis: RT DISTAL URETERAL AND RENAL STONES ALEXANDRE BYRNE MD Aug 14, 2020 07:02
[2020-08-14] MEDS ORDERED: FAMOTIDINE 20MG/2ML IV (PEPCID) IVP ONE (07:15)
[2020-08-14] MEDS ORDERED: fentaNYL INJ 100 MCG/2 ML AMP IVP ONE (07:30)
[2020-08-14] MEDS ORDERED: ONDANSETRON 4 MG/2 ML (SDV) Z0FRAN IVP PRN (07:30)
[2020-08-14] MEDS ORDERED: morphine INJ 10 MG/ML 1ML (SYR OR VIAL) IVP ONE (07:30)
--- NOTE | 2020-08-14 07:42 | Diagnostic Imaging Report ---
INDICATION: Kidney stone COMPARISON: 08/03/2020 FINDINGS: Single view of the abdomen demonstrates a stable 8 mm stone in the inferior pole right kidney. No ureteral stones are seen. Phleboliths are seen in the pelvis. There is no large pocket of free air. No bowel obstruction. IMPRESSION: Stable right renal calculus. No obvious ureteral calculi are identified. Dictated by: Dictated on workstation # [id number]
[2020-08-14] MEDS ORDERED: ROCURONIUM 10 MG/ML 5 ML SYRINGE IV ONE (07:43)
[2020-08-14] MEDS ORDERED: KETOROLAC 30 MG/ML VIAL ONE (07:47)
[2020-08-14] MEDS ORDERED: FUROSEMIDE 40 MG/4 ML INJ (LASIX) ONE (07:47)
--- NOTE | 2020-08-14 07:59 | Progress Note-Post Operative ---
Post-Operative Progess Note Surgeon (s)/Repairer Screen Crusher (s) Surgeon ALEXANDRE BYRNE MD Repairer Screen Crusher: NONE Pre-Operative Diagnosis RT DISTAL URETERAL AND RENAL STONES Post-Operative Diagnosis SAME Procedure & Operative Findings Date of Procedure 08/14/20 Procedure Performed/Findings CYSTOSCOPY, RT URETEROSCOPY WITH STONE LITHOTRIPSY Anesthesia Type GENERAL Estimated Blood Loss Estimated blood loss (mL): NONE Specimens/Packing Specimens Removed NONE Packing: NONE ALEXANDRE BYRNE MD Aug 14, 2020 07:58
--- NOTE | 2020-08-14 08:04 | Discharge Inst-Urology ---
Discharge Inst-Urology Reconcile Patient Problems Problems Reviewed?: Yes Final Diagnosis RT URETERAL AND RENAL STONES Patient Instructions/Follow Up Plan/Assessment/Instructions Please make appointment to been seen in office Sunday 08/27. Increase oral fluids for 48 hours and then as needed. Diet and Activity as tolerated. If questions or concerns contact your physician Or seek help at emergency department. ALEXANDRE BYRNE MD Aug 14, 2020 08:04
[2020-08-14] MEDS ORDERED: TMSL.4C PO (08:19)
[2020-08-14] MEDS ORDERED: SULF1TAB35 PO (08:19)
[2020-08-14] MEDS ORDERED: TRM50T PO (08:19)
--- NOTE | 2020-08-14 08:54 | Anesthesia-General Post-Op ---
General Patient Condition Mental Status/LOC: Same as Preop Cardiovascular: Satisfactory Nausea/Vomiting: Absent Respiratory: Satisfactory Pain: Controlled Complications: Absent Post Op Complications Complications None Follow Up Care/Instructions Patient Instructions None needed. Anesthesia/Patient Condition Patient Condition Patient is doing well, no complaints, stable vital signs, no apparent adverse anesthesia problems. No complications reported per nursing. ANA REAL CRNA Aug 14, 2020 08:54
[2020-08-14] MEDS ORDERED: PHENAZOPYRIDINE 100 MG (PYRIDIUM) TABLET ONE (08:57)
[2020-08-14] MEDS ORDERED: PHENAZOPYRIDINE 100 MG (PYRIDIUM) TABLET PO ONE (09:15)
[2020-08-14] MEDS ORDERED: PHEN-640 PO (09:16)
--- NOTE | 2020-08-14 12:30 | OPERATIVE REPORT ---
DATE OF SERVICE: 08/14/2020 PREOPERATIVE DIAGNOSIS: Right distal ureteral and renal stones. POSTOPERATIVE DIAGNOSIS: Right distal ureteral and renal stones. OPERATIONS PERFORMED: Cystoscopy with right ureteroscopy and stone lithotripsy. SURGEON: Jun Byrne MD. ANESTHESIA: General. COMPLICATIONS: None. DESCRIPTION OF PROCEDURE: Under satisfactory general anesthesia, the patient in lithotomy position, the genitalia were prepped and draped in the usual sterile fashion. Cystoscope was introduced under vision. The anterior urethra was normal. The prostate was nonobstructing. The bladder neck was open. The bladder was inspected and was normal except for a sluggish efflux on the right side. Using the foroblique lens, I dilated the right ureteral orifice intramural portion to the level of the stone to accommodate a 6.9 Upper Sorbian semi-rigid ureteroscope. I visualized the stone that was impacted in the ureter. I was able to fragment it completely and go beyond it to make sure there was no further stone proximally and removed the ureteroscope, reinserted the cystoscope and emptied the bladder. The patient tolerated the procedure and anesthesia well and was sent to recovery room in a stable condition. PLAN: We will bring him back in two weeks and do ESWL on the right renal stone. Job ID: [id number] DocumentID: [id number] Dictated Date: 08/14/2020 08:02:40 Autocad Technician Date: 08/14/2020 12:30:37 Dictated By: JUN BYRNE MD
== END 2020-08-14 09:50 | disposition home or self-care (01) ==
LOC: SDC 06:03
PROVIDERS: ATTEND Urology
DX: N20.2 Calculus of kidney with calculus of ureter (principal); E66.9 Obesity, unspecified; F17.210 Nicotine dependence, cigarettes, uncomplicated; Z68.31 Body mass index [BMI] 31.0-31.9, adult; Z88.5 Allergy status to narcotic agent; Z79.2 Long term (current) use of antibiotics; Z79.899 Other long term (current) drug therapy; Z83.3 Family history of diabetes mellitus; Z80.0 Family history of malignant neoplasm of digestive organs; Z82.49 Family history of ischemic heart disease and other diseases of the circulatory system
CPT/HCPCS: 74018; 76000; 87081

== ENCOUNTER 2020-08-28 07:14 | Day surgery (SDC) | payer BC ==
[~2020-08-28] VITALS: Ht 171 cm; Wt 88.4 kg
[~2020-08-28 07:14] MED LIST changes: +PHEN-640 PO; +SULF1TAB35 PO
[2020-08-28 07:28] VITALS: BP 128/82
[2020-08-28] MEDS ORDERED: LACTATED RINGERS 1,000 ML IV PRN (07:30)
[2020-08-28] MEDS ORDERED: cefTRIAXone FOR IV USE 1,000 MG in WATER (STERILE) FOR INJECTION 10 ML IV ONE (07:30)
--- NOTE | 2020-08-28 08:01 | Diagnostic Imaging Report ---
INDICATION: Renal stone, extracorporeal shock wave lithotripsy. TECHNIQUE: Single supine view of the abdomen 7:46 AM CORRELATION STUDY: 08/14/2020 FINDINGS: Approximately 9 mm calcification projects over the right renal silhouette. Punctate stone over the inferior pole left kidney. No definitive calcification along the expected course of either ureter. Likely phlebolith calcification in the pelvis, stable. IMPRESSION: 1. No appreciable change in the appearance and/or positioning of the right renal stone. Dictated by: Dictated on workstation # [id number]
--- NOTE | 2020-08-28 08:26 | Progress Note-Pre Operative ---
Pre-Operative Progress Note H&P Reviewed The H&P was reviewed, patient examined and no changes noted. Date Seen by Provider: Aug 28, 2020 Time Seen by Provider: 08: Date H&P Reviewed: Aug 28, 2020 Time H&P Reviewed: 08: Pre-Operative Diagnosis: RT RENAL STONE ALEXANDRE BYRNE MD Aug 28, 2020 08:26
[2020-08-28 09:07] VITALS: BP 128/82
== END 2020-08-28 09:07 | disposition home or self-care (01) ==
LOC: SDC 07:14
PROVIDERS: ATTEND Urology
DX: N13.2 Hydronephrosis with renal and ureteral calculous obstruction (principal); Z53.9 Procedure and treatment not carried out, unspecified reason; Z88.5 Allergy status to narcotic agent
CPT/HCPCS: 74018; 87081

== ENCOUNTER 2020-09-05 06:21 | Day surgery (SDC) | payer BC ==
[2020-09-05] VITALS (11 sets, daily range): BP systolic 97–136; BP diastolic 51–83
[~2020-09-05] VITALS: Ht 171 cm; Wt 88.4 kg
[2020-09-05] MEDS ORDERED: cefTRIAXone FOR IV USE 1,000 MG in WATER (STERILE) FOR INJECTION 10 ML IV ONE (06:45)
[2020-09-05] MEDS ORDERED: LACTATED RINGERS 1,000 ML IV PRN (06:45)
--- NOTE | 2020-09-05 06:45 | Diagnostic Imaging Report ---
INDICATION: Right kidney stone Supine views of the abdomen shows a 9 mm calculus in the right mid kidney. No other urinary tract stones are evident. There are calcified phleboliths in the pelvis bilaterally. Bowel gas pattern is within normal limits. There is no bony abnormality. IMPRESSION: There is a 9 mm calculus in the midportion of the right kidney. Dictated by: Dictated on workstation # [id number]
[2020-09-05] MEDS ORDERED: fentaNYL INJ 100 MCG/2 ML AMP ONE (06:55)
[2020-09-05] MEDS ORDERED: SEVOFLURANE (ULTANE) 15 ML INHAL SOLN ONE ×2 (06:55→07:31)
[2020-09-05] MEDS ORDERED: LIDOCAINE PF 2% 5 ML (XYLOCAINE) VIAL ONE (06:55)
[2020-09-05] MEDS ORDERED: proPOfol 200 MG/20 ML (DIPRIVAN) VIAL IV ONE (06:55)
[2020-09-05] MEDS ORDERED: ONDANSETRON 4 MG/2 ML (SDV) Z0FRAN ONE (06:55)
[2020-09-05] MEDS ORDERED: MIDAZOLAM 2 MG/2 ML (VERSED) VIAL ONE (06:56)
[2020-09-05] MEDS ORDERED: cefTRIAXone 1,000 MG IV (ROCEPHIN) VIAL ONE ×2 (06:58→06:59)
[2020-09-05] MEDS ORDERED: WATER (STERILE) FOR INJECTION 10 ML ONE (06:59)
--- NOTE | 2020-09-05 07:07 | Progress Note-Pre Operative ---
Pre-Operative Progress Note H&P Reviewed The H&P was reviewed, patient examined and no changes noted. Date Seen by Provider: Sep 05, 2020 Time Seen by Provider: 07:07 Date H&P Reviewed: Sep 05, 2020 Time H&P Reviewed: 07:07 Pre-Operative Diagnosis: RT RENAL STONE ALEXANDRE BYRNE MD Sep 05, 2020 07:07
--- NOTE | 2020-09-05 07:26 | Progress Note-Post Operative ---
Post-Operative Progess Note Surgeon (s)/Wrapper Selector (s) Surgeon ALEXANDRE BYRNE MD Wrapper Selector: NONE Pre-Operative Diagnosis RT RENAL STONE Post-Operative Diagnosis SAME Procedure & Operative Findings Date of Procedure 09/05/20 Procedure Performed/Findings RT ESWL Anesthesia Type GENERAL Estimated Blood Loss Estimated blood loss (mL): NONE Specimens/Packing Specimens Removed NONE Packing: NONE ALEXANDRE BYRNE MD Sep 05, 2020 07:26
--- NOTE | 2020-09-05 07:28 | Discharge Inst-Urology ---
Discharge Inst-Urology Reconcile Patient Problems Problems Reviewed?: Yes Final Diagnosis RT RENAL STONE Patient Instructions/Follow Up Plan/Assessment/Instructions Please make appointment to been seen in office next Sunday 09/10, KUB prior to it. KUB on way home Post ESWL instructions Increase oral fluids for 48 hours and then as needed. Diet and Activity as tolerated. If questions or concerns contact your physician Or seek help at emergency department. ALEXANDRE BYRNE MD Sep 05, 2020 07:28
[2020-09-05] MEDS ORDERED: fentaNYL INJ 100 MCG/2 ML AMP IVP ONE (07:30)
[2020-09-05] MEDS ORDERED: morphine INJ 10 MG/ML 1ML (SYR OR VIAL) IVP ONE (07:30)
[2020-09-05] MEDS ORDERED: KETOROLAC 30 MG/ML VIAL ONE (07:45)
[2020-09-05] MEDS ORDERED: FUROSEMIDE 40 MG/4 ML INJ (LASIX) ONE (07:45)
--- NOTE | 2020-09-05 08:16 | Anesthesia-General Post-Op ---
General Patient Condition Mental Status/LOC: Same as Preop Cardiovascular: Satisfactory Nausea/Vomiting: Absent Respiratory: Satisfactory Pain: Controlled Complications: Absent Post Op Complications Complications None Follow Up Care/Instructions Patient Instructions None needed. Anesthesia/Patient Condition Patient Condition Patient is doing well, no complaints, stable vital signs, no apparent adverse anesthesia problems. No complications reported per nursing. ANA REAL CRNA Sep 05, 2020 08:16
[2020-09-05] MEDS ORDERED: TMSL.4C PO (08:57)
[2020-09-05] MEDS ORDERED: TRM50T PO (08:57)
[2020-09-05] MEDS ORDERED: NITR-65 PO (08:57)
--- NOTE | 2020-09-05 10:51 | Diagnostic Imaging Report ---
INDICATION: Status post lithotripsy. Time of exam: 9:54 AM Correlation is made with prior radiograph from earlier the same day. There appears to be interval fragmentation of the calculus noted overlying the mid right kidney, status post lithotripsy. No definite calculi along the course of the ureters is seen. Numerous pelvic calcifications appear to be similar to prior. IMPRESSION: Fragmentation of calculus overlying the mid right kidney. No definite ureteral calculi are seen. Dictated by: Dictated on workstation # [id number]
--- NOTE | 2020-09-05 14:38 | OPERATIVE REPORT ---
DATE OF SERVICE: 09/05/2020 PREOPERATIVE DIAGNOSIS: Right renal stone. POSTOPERATIVE DIAGNOSIS: Right renal stone. OPERATION PERFORMED: Right ESWL. SURGEON: Jun Byrne MD ANESTHESIA: General. COMPLICATIONS: None. DESCRIPTION OF PROCEDURE: Under satisfactory general anesthesia, the patient in supine position, the right renal stone was localized. Shocks were delivered at kV of 6, a total of 3000 shocks completely fragmented the stone, which was hardly visualized. The patient received 40 mg of Lasix and 30 mg of Toradol IV at the end of the procedure. He tolerated the procedure and anesthesia well and was sent to recovery room in stable condition. Job ID: [id number] DocumentID: [id number] Dictated Date: 09/05/2020 08:02:11 Craps Dealer Date: 09/05/2020 14:36:52 Dictated By: JUN BYRNE MD
== END 2020-09-05 10:00 ==
LOC: SDC 06:21
PROVIDERS: ATTEND Urology
DX: N20.0 Calculus of kidney (principal); I10 Essential (primary) hypertension; F17.210 Nicotine dependence, cigarettes, uncomplicated; Z88.8 Allergy status to other drugs, medicaments and biological substances; Z79.899 Other long term (current) drug therapy; Z83.3 Family history of diabetes mellitus; Z80.0 Family history of malignant neoplasm of digestive organs
CPT/HCPCS: 74018; 87081

== ENCOUNTER → 2020-12-21 | Outpatient (CLI) | payer BC ==
[~2020-12-21] MED LIST changes: +NITR-65 PO; -SULF1TAB35 PO; +SULF1TAB38 PO
--- NOTE | 2020-12-21 10:51 | Diagnostic Imaging Report ---
INDICATION: Ureteral calculus post ESWL. Compared with abdominal radiograph 09/05/2020 as well as correlated with abdominal pelvic CT of 08/10/2020. A right upper pole renal calculus seen on previous studies is no longer apparent. Pelvic calcifications unchanged and believed phleboliths. No bowel obstruction. Left upper quadrants calcified splenic granulomata chronic. IMPRESSION: The right renal calculus can no longer be visualized radiographically. There has been no adverse development. Dictated by: Dictated on workstation # [id number]
== END ==
LOC: RAD 09:05
PROVIDERS: ATTEND Urology
DX: N20.1 Calculus of ureter (principal)
CPT/HCPCS: 74018

== ENCOUNTER 2021-06-13 08:38 | Emergency (ER) | payer BC ==
[~2021-06-13] VITALS: Ht 167 cm; Wt 83.0 kg
[~2021-06-13 08:38] MED LIST changes: +CYCL10TA25 PO; -CYCL10TA9 PO; -DOXY100C2 PO; +DOXY100C5 PO
[2021-06-13 08:40] VITALS: BP 145/69
--- NOTE | 2021-06-13 09:14 | ED Cough/URI ---
General Chief Complaint: COVID19 Suspect/Confirmed Stated Complaint: COUGH,CP,VELASQUEZ Nursing Triage Note: ARRIVED VIA AMB WITH COMPLAINTS OF COUGH SINCE LAST WEEK AND FEVER STARTING TODAY. TESTED NEG FOR COVID LAST WEEK. PT COMPLAINS OF CHEST/LUNG PAIN WHEN HE COUGHS. Source: patient Exam Limitations: no limitations History of Present Illness Date Seen by Provider: Jun 13, 2021 Time Seen by Provider: 08:55 Initial Comments Patient to the ER by private conveyance chief complaint of 3 weeks progressively worsening productive cough now the last day or so with a fever T-max of 101. He went to the walk-in clinic about a week ago and was put on a steroid and azithromycin which did not help his symptoms. He has been using qneq-kov-mkafvvo as well as prescription cough medicines with no relief. Patient is a pack and a half a day smoker without history of hyperlipidemia. He says he used to have hypertension but lost some weight. No heart history. He is claiming his chest aches when he coughs a lot but no specific place. No hemoptysis. No shortness of air at rest. No swelling or pain in his legs. No nausea vomiting or diarrhea. No other significant medical or surgical history Allergies and Home Medications Allergies Coded Allergies: meperidine (Verified Allergy, Unknown, 09/05/20) Patient Home Medication List Home Medication List Reviewed: Yes Nitrofurantoin Monohyd/M-Cryst (Macrobid 100 mg Capsule) 100 Mg Capsule, 1 TAB PO BID WITH MEALS Prescribed by: SARA BEGUM on 09/05/20 0857 Tamsulosin HCl (Flomax) 0.4 Mg Cap, 0.4 MG PO DAILY Prescribed by: GENI RODRIGUEZ on 08/14/20 0819 Tamsulosin HCl (Flomax) 0.4 Mg Cap, 0.4 MG PO DAILY Prescribed by: SARA BEGUM on 09/05/20 0857 Tramadol HCl (Tramadol HCl) 50 Mg Tablet, 50 MG PO Q4H PRN for PAIN-MODERATE (5- 7) Prescribed by: SARA BEGUM on 09/05/20 0857 Review of Systems Review of Systems Constitutional: chills; No diaphoresis; fever, malaise EENTM: No ear discharge, No ear pain Respiratory: cough, phlegm; No short of breath Cardiovascular: chest pain; No edema Gastrointestinal: No abdominal pain, No constipation, No diarrhea, No nausea, No vomiting Genitourinary: No discharge, No dysuria Musculoskeletal: No back pain, No joint pain All Other Systems Reviewed Negative Unless Noted: Yes Past Velcefq-Kapmlv-Tvzccx Hx Patient Social History Smoking Status: Current Everyday Smoker Substance use?: No Alcohol Use?: No Immunizations Up To Date Tetanus Booster (TDap): Less than 5yrs PED Vaccines UTD: Yes Second COVID19 Vaccination Supa: 05/14 COVID19 Vaccine Cray Fishing Hand: OLGA Seasonal Allergies Seasonal Allergies: No Past Medical History Surgeries: Yes (KIDNEY STONE BASKET REMOVAL x 2, ACL repair) Renal Respiratory: No Currently Using CPAP: No Currently Using BIPAP: No Cardiac: No Hypertension Neurological: No Reproductive Disorders: No HIV/AIDS: No Genitourinary: Yes Kidney Stones Gastrointestinal: No Musculoskeletal: No Endocrine: No HEENT: No Cancer: No Psychosocial: No Integumentary: No Blood Disorders: No Family Medical History No Pertinent Family Hx Physical Exam Vital Signs - First Documented 06/13/21 08:40 Temp 36.5 Pulse 76 Resp 16 B/P (MAP) 145/69 (94) Pulse Ox 96 O2 Delivery Room Air Capillary Refill : Less Than 3 Seconds Height: 5'6.00" Weight: 230lbs. oz. 104.101554bd; 29.00 BMI Method:Stated General Appearance: WD/WN, no apparent distress Eyes: Bilateral Eye Normal Inspection, Bilateral Eye PERRL, Bilateral Eye EOMI HEENT: PERRL/EOMI, normal ENT inspection, TMs normal, pharynx normal Neck: full range of motion, supple, normal inspection Respiratory: lungs clear, normal breath sounds, no respiratory distress, no accessory muscle use, decreased breath sounds Cardiovascular: normal peripheral pulses, regular rate, rhythm Gastrointestinal: non tender, soft Extremities: normal range of motion, normal capillary refill Neurologic/Psychiatric: alert, normal mood/affect, oriented x 3 Skin: normal color, warm/dry Progress/Results/Core Measures Suspected Sepsis SIRS Temperature: Pulse: 76 Respiratory Rate: 16 Laboratory Tests 06/13/21 08:47: White Blood Count 10.1 Blood Pressure 145 /69 Mean: 94 Laboratory Tests 06/13/21 08:47: Creatinine 1.09, Platelet Count 228 Results/Orders Lab Results Laboratory Tests Test 06/13/21 08:47 Range/Units White Blood Count 10.1 4.3-11.0 10^3/uL Red Blood Count 5.21 4.30-5.52 10^6/uL Hemoglobin 16.2 13.3-17.7 g/dL Hematocrit 47 40-54 % Mean Corpuscular Volume 90 80-99 fL Mean Corpuscular Hemoglobin 31 25-34 pg Mean Corpuscular Hemoglobin Concent 35 32-36 g/dL Red Cell Distribution Width 12.3 10.0-14.5 % Platelet Count 228 130-400 10^3/uL Mean Platelet Volume 8.8 L 9.0-12.2 fL Immature Granulocyte % (Auto) 0 % Neutrophils (%) (Auto) 68 42-75 % Lymphocytes (%) (Auto) 22 12-44 % Monocytes (%) (Auto) 6 0-12 % Eosinophils (%) (Auto) 3 0-10 % Basophils (%) (Auto) 0 0-10 % Neutrophils # (Auto) 6.9 1.8-7.8 10^3/uL Lymphocytes # (Auto) 2.2 1.0-4.0 10^3/uL Monocytes # (Auto) 0.6 0.0-1.0 10^3/uL Eosinophils # (Auto) 0.3 0.0-0.3 10^3/uL Basophils # (Auto) 0.0 0.0-0.1 10^3/uL Immature Granulocyte # (Auto) 0.0 0.0-0.1 10^3/uL Sodium Level 139 135-145 MMOL/L Potassium Level 4.4 3.6-5.0 MMOL/L Chloride Level 104 98-107 MMOL/L Carbon Dioxide Level 24 21-32 MMOL/L Anion Gap 11 5-14 MMOL/L Blood Urea Nitrogen 19 H 7-18 MG/DL Creatinine 1.09 0.60-1.30 MG/DL Estimat Glomerular Filtration Rate 86 BUN/Creatinine Ratio 17 Glucose Level 103 70-105 MG/DL Calcium Level 9.5 8.5-10.1 MG/DL Troponin I < 0.028 <0.028 NG/ML C-Reactive Protein High Sensitivity 4.08 H 0.00-0.50 MG/DL Influenza Type A (RT-PCR) Not Detected Not Detecte Influenza Type B (RT-PCR) Not Detected Not Detecte SARS-CoV-2 RNA (RT-PCR) Not Detected Not Detecte My Orders Orders - KIN ISAAC Continuous Ekg Monitoring (06/13/21 08:45) Ekg Tracing (06/13/21 08:45) Covid 19 Inhouse Test (06/13/21 09:08) Influenza A And B By Pcr (06/13/21 09:08) Mycoplasma Antibodies (06/13/21 09:08) Chest Pa/Lat (2 View) (06/13/21 09:08) Cbc With Automated Diff (06/13/21 09:08) Hs C Reactive Protein (06/13/21 09:08) Basic Metabolic Panel (06/13/21 09:08) Troponin I Menard (06/13/21 09:08) Iohexol Injection (Omnipaque 350 Mg/Ml 1 (06/13/21 11:00) Received Contrast (Hold Metformin- Contr (06/13/21 11:00) Ns (Ivpb) (Sodium Chloride 0.9% Ivpb Bag (06/13/21 11:00) Sodium Chloride Flush (Catheter Flush Sy (06/13/21 11:00) Ceftriaxone 1 Gm Pre-Mix (Rocephin 1 Gm (06/13/21 11:15) Vital Signs/I&O 06/13/21 08:40 Temp 36.5 Pulse 76 Resp 16 B/P (MAP) 145/69 (94) Pulse Ox 96 O2 Delivery Room Air Capillary Refill : Less Than 3 Seconds Blood Pressure Mean: 94 Progress Note : Time: 09:13 Progress Note Mycoplasma, labs. Two-view chest x-ray COVID and influenza. Patient has aseptic vital signs and no hypoxemia or increased work of breathing. No wheezing heard ECG Initial ECG Impression Date: Jun 13, 2021 Initial ECG Impression Time: 08:59 Initial ECG Rate: 62 Initial ECG Rhythm: Normal Sinus Initial ECG Intervals: Normal Initial ECG Impression: Normal Comment Normal sinus rhythm without clinically relevant ST elevation or depression. Diagnostic Imaging Diagonstic Imaging: Xray Plain Films/CT/US/NM/MRI: chest Comments [facility] [place], [place] NAME: STIVEN BHAKTA REC#: [id number] PT STATUS: REG ER : 1980 PHYSICIAN: KIN ISAAC MD ADMIT DATE: 06/13/21/ER Draft Date of Exam:06/13/21 CHEST PA/LAT (2 VIEW) INDICATION: Cough, dyspnea and fever. PA and lateral views of the chest are obtained. COMPARISON: 09/02/2011 FINDINGS: Heart size and pulmonary vascularity are within normal limits, and the lungs are clear, bilaterally. IMPRESSION: Unremarkable chest. Dictated on workstation # [id number] Dict: 06/13/21 1045 Trans: 06/13/21 1049 [id number] Interpreted by: KAI WEINSTEIN MD Electronically signed by: Reviewed: Reviewed by Me Departure Impression Primary Impression: Walking pneumonia Disposition: HOME, SELF-CARE Condition: Stable Departure-Patient Inst. Decision time for Depature: 11:08 Referrals: [facility] (PCP) Primary Care Physician ERNESTINE PENA (Family) Primary Care Physician Patient Instructions: Community-Acquired Pneumonia, Adult (DC) Add. Discharge Instructions: Walking pneumonia can be caused by bacteria such as mycoplasma or oftentimes even viruses. Doxycycline should help if it is bacterial but will do nothing for a viral pneumonia and only time will help that. Doxycycline 1 capsule twice a day for the next 10 days Probiotics 1 capsule twice a day for the next 10 days. Wpps-ojo-rolmuqj cough medicines and decongestants can be helpful for cough. Chlorpheniramine 4 mg every 4 hours. Phenylephrine such as is in DayQuil/NyQuil, Sudafed and Tessalon Perles 1 capsule every 6 hours as necessary for cough If you are having wheezing or coughing fits especially with shortness of air then I would suggest 2 puffs of albuterol/ProAir every 4 hours as needed. All discharge instructions reviewed with patient and/or family. Voiced understanding. Scripts Albuterol Sulfate (PROAIR HFA) 1 Puff Puff 2 PUFF IH Q4H PRN for COUGH, #1 EA 0 Refills 1 PUFF = 90 MCG Prov: KIN ISAAC 06/13/21 Lactobacillus Acidophilus (Probiotic) 1 Each Capsule 1 EACH PO BID for 10 Days, #20 CAP 0 Refills Prov: KIN ISAAC 06/13/21 Doxycycline Hyclate (Doxycycline Hyclate) 100 Mg Tablet 100 MG PO BID, #20 TAB 0 Refills Prov: KIN ISAAC 06/13/21 Benzonatate (TESSALON PERLES) 100 Mg Capsule 100 MG PO Q6H PRN for COUGH, #20 CAP 0 Refills Prov: KIN ISAAC 06/13/21 Pseudoephedrine HCl (Sudafed 12 Hour) 120 Mg Tablet.er 120 MG PO BID PRN for CONGESTION, #20 TAB 0 Refills Prov: KIN ISAAC 06/13/21 Work/School Note: Work Release Form Date Seen in the Emergency Department: Jun 13, 2021 Return to Work: Jun 17, 2021 Restrictions: No Restrictions KIN ISAAC Jun 13, 2021 09:14
[2021-06-13 09:17] LABS: BASOPHILS % (AUTO) 0 % (0-10); EOSINOPHILS # (AUTO) 0.3 10^3/uL (0.0-0.3); EOSINOPHILS % (AUTO) 3 % (0-10); HEMATOCRIT 47 % (40-54); HEMOGLOBIN 16.2 g/dL (13.3-17.7); LYMPHOCYTES # (AUTO) 2.2 10^3/uL (1.0-4.0); LYMPHOCYTES % (AUTO) 22 % (12-44); MEAN CORPUSCULAR HEMOGLOBIN 31 pg (25-34); MEAN CORPUSCULAR HGB CONC 35 g/dL (32-36); MEAN CORPUSCULAR VOLUME 90 fL (80-99); MEAN PLATELET VOLUME 8.8 fL (9.0-12.2); MONOCYTES # (AUTO) 0.6 10^3/uL (0.0-1.0); MONOCYTES % (AUTO) 6 % (0-12); NEUTROPHILS # (AUTO) 6.9 10^3/uL (1.8-7.8); NEUTROPHILS % (AUTO) 68 % (42-75); PLATELET COUNT 228 10^3/uL (130-400); WHITE BLOOD COUNT 10.1 10^3/uL (4.3-11.0)
[2021-06-13 09:24] LABS: CHLORIDE 104 MMOL/L (98-107); POTASSIUM 4.4 MMOL/L (3.6-5.0); SODIUM 139 MMOL/L (135-145)
[2021-06-13 09:25] LABS: CALCIUM 9.5 MG/DL (8.5-10.1)
[2021-06-13 09:26] LABS: GLUCOSE 103 MG/DL (70-105)
[2021-06-13 09:27] LABS: CARBON DIOXIDE 24 MMOL/L (21-32)
[2021-06-13 09:30] LABS: BUN/CREATININE RATIO 17; CREATININE SERUM 1.09 MG/DL (0.60-1.30); GFR ESTIMATED 86
--- NOTE | 2021-06-13 10:49 | Diagnostic Imaging Report ---
INDICATION: Cough, dyspnea and fever. PA and lateral views of the chest are obtained. COMPARISON: 09/02/2011 FINDINGS: Heart size and pulmonary vascularity are within normal limits, and the lungs are clear, bilaterally. IMPRESSION: Unremarkable chest. Dictated by: Dictated on workstation # [id number]
[2021-06-13] MEDS ORDERED: CATHETER FLUSH 10 ML SYR IV PRN (11:00)
[2021-06-13] MEDS ORDERED: IOHEXOL 350 MG/ML 100 ML (OMNIPAQUE 350) VIAL IV ONE (11:00)
[2021-06-13] MEDS ORDERED: HOLD METFORMIN - RECEIVED CONTRAST 20 ML VIAL IV SCH (11:00)
[2021-06-13] MEDS ORDERED: NS 100 ML (IVPB) BAG IV ONE (11:00)
[2021-06-13] MEDS ORDERED: BENZ100C18 PO (11:13)
[2021-06-13] MEDS ORDERED: LACT1CAP62 PO (11:13)
[2021-06-13] MEDS ORDERED: DOXY100T2 PO (11:13)
[2021-06-13] MEDS ORDERED: PSEU120T17 PO (11:13)
[2021-06-13] MEDS ORDERED: cefTRIAXone 1 GM PRE-MIX 50 ML IV ONE (11:15)
[2021-06-13] MEDS ORDERED: RT-ALBUINH IH (11:16)
== END 2021-06-13 11:47 | disposition home or self-care (01) ==
LOC: EDUNIT# 08:38 → ER 08:40
DX: J18.9 Pneumonia, unspecified organism (principal); F17.210 Nicotine dependence, cigarettes, uncomplicated
CPT/HCPCS: 36415; 71046; 80048; 84484; 85025; 86141; 86738; 87636

== ENCOUNTER 2021-08-23 08:56 | Emergency (ER) | payer BC ==
[~2021-08-23] VITALS: Ht 165 cm; Wt 83.9 kg
[~2021-08-23 08:56] MED LIST changes: +BENZ100C18 PO; +DOXY100T2 PO; +LACT1CAP62 PO; +PSEU120T17 PO; +RT-ALBUINH IH
--- NOTE | 2021-08-23 09:38 | ED Back Pain ---
General Chief Complaint: Back Problems Stated Complaint: BACK PAIN Nursing Triage Note: PT C/O RIGHT FLANK PAIN THAT STARTED LAST NIGHT. STATES HE HAS HX OF KIDNEY STONES. Source of Information: Patient Exam Limitations: No Limitations (KEY CELIS MED STUDENT) History of Present Illness Date Seen by Provider: Aug 23, 2021 Time Seen by Provider: 09:28 Initial Comments Mr. Benjamin is a 41yo male patient of Dr. Byrne with PMH multiple kidney stones who presents today for back pain and hematuria. States that the pain started last night. Located in the R side of his back, sharp pain. He has noticed gross hematuria with this, states it is getting more difficult to void. He has not taken anything for pain yet, states this feels exactly like stones he's had before. Walking makes it worse. Only other symptom he complains of is nausea but no vomiting. He is a smoker. NKDA. (KEY CELIS MED STUDENT) Initial Comments Patient reports his pain was "a 15 last night" but more moderate today. He believes his pain is consistent with prior ureteral stones. (CARSON ALARCON MD) Allergies and Home Medications Allergies Coded Allergies: meperidine (Verified Allergy, Unknown, 09/05/20) Patient Home Medication List Home Medication List Reviewed: Yes (CARSON ALARCON MD) Albuterol Sulfate (Proair Hfa) 1 Puff Puff, 2 PUFF IH Q4H PRN for COUGH Prescribed by: KIN ISAAC on 06/13/21 1116 Benzonatate (Tessalon Perles) 100 Mg Capsule, 100 MG PO Q6H PRN for COUGH Prescribed by: KIN ISAAC on 06/13/21 1113 Doxycycline Hyclate (Doxycycline Hyclate) 100 Mg Tablet, 100 MG PO BID Prescribed by: KIN ISAAC on 06/13/21 1113 Lactobacillus Acidophilus (Probiotic) 1 Each Capsule, 1 EACH PO BID Prescribed by: KIN ISAAC on 06/13/21 1113 Nitrofurantoin Monohyd/M-Cryst (Macrobid 100 mg Capsule) 100 Mg Capsule, 1 TAB PO BID WITH MEALS Prescribed by: SARA BEGUM on 09/05/20 0857 Pseudoephedrine HCl (Sudafed 12 Hour) 120 Mg Tablet.er, 120 MG PO BID PRN for CONGESTION Prescribed by: KIN ISAAC on 06/13/21 1115 Tamsulosin HCl (Flomax) 0.4 Mg Cap, 0.4 MG PO DAILY Prescribed by: GENI RODRIGUEZ on 08/14/20 0819 Tamsulosin HCl (Flomax) 0.4 Mg Cap, 0.4 MG PO DAILY Prescribed by: SARA BEGUM on 09/05/20 0857 Tramadol HCl (Tramadol HCl) 50 Mg Tablet, 50 MG PO Q4H PRN for PAIN-MODERATE (5- 7) Prescribed by: SARA BEGUM on 09/05/20 0857 Review of Systems Constitutional: No chills, No fever EENTM: No hearing loss, No vision loss Respiratory: No cough, No short of breath Cardiovascular: No chest pain, No edema Gastrointestinal: No abdominal pain, No constipation, No diarrhea; nausea; No vomiting Genitourinary: dysuria, hematuria Musculoskeletal: back pain (R side over kidney area); No joint pain, No joint swelling Skin: No lesions, No rash Psychiatric/Neurological: Denies Headache, Denies Numbness (KEY CELIS STUDENT) Past Cayxqlp-Bzsumu-Rbjjns Hx Patient Social History Tobacco Use?: Yes Tobacco type used: Cigarettes Use of E-Cig and/or Vaping dev: No Substance use?: No Alcohol Use?: No (CARSON ALARCON MD) Immunizations Up To Date Tetanus Booster (TDap): Less than 5yrs PED Vaccines UTD: Yes Second COVID19 Vaccination Supa: 05/14 (KEY CELIS STUDENT) Seasonal Allergies Seasonal Allergies: No (KEY CELIS) Past Medical History Surgeries: Yes (KIDNEY STONE BASKET REMOVAL x 2, ACL repair) Renal Respiratory: No Currently Using CPAP: No Currently Using BIPAP: No Cardiac: No Hypertension Neurological: No Reproductive Disorders: No HIV/AIDS: No Genitourinary: Yes Kidney Stones Gastrointestinal: No Musculoskeletal: No Endocrine: No HEENT: No Cancer: No Psychosocial: No Integumentary: No Blood Disorders: No (KEY CELIS) Family Medical History No Pertinent Family Hx (KEY CELIS) Physical Exam Vital Signs Vital Signs - First Documented 08/23/21 09:28 Temp 36.2 Pulse 81 Resp 18 B/P (MAP) 140/101 (114) O2 Delivery Room Air (CARSON ALARCON MD) Vital Signs Capillary Refill : Less Than 3 Seconds (KEY CELIS MED STUDENT) Height, Weight, BMI Height: 5'6.00" Weight: 230lbs. oz. 104.559119fo; 30.00 BMI Method:Stated General Appearance: WD/WN, Moderate Distress (Walking around the room holding his back) HEENT: PERRL/EOMI, Pharynx Normal, Moist Mucous Membranes Cardiovascular: Regular Rate, Rhythm, No Edema, No Murmur, Normal Peripheral Pulses Respiratory: Chest Non Tender, Lungs Clear, Normal Breath Sounds Peripheral Pulses: 2+ Radial Pulses (R), 2+ Radial Pulses (L) Gastrointestinal: Normal Bowel Sounds, Non Tender, Soft Back: Normal Inspection, CVA Tenderness (R) Extremity: Non Tender, No Calf Tenderness, No Pedal Edema Neurologic/Psychiatric: Alert, Oriented x3, No Motor/Sensory Deficits Skin: Normal Color, Warm/Dry (KEY CELIS MED STUDENT) Progress/Results/Core Measures Results/Orders Lab Results Laboratory Tests Test 08/23/21 09:35 08/23/21 09:44 Range/Units White Blood Count 6.8 4.3-11.0 10^3/uL Red Blood Count 5.19 4.30-5.52 10^6/uL Hemoglobin 16.0 13.3-17.7 g/dL Hematocrit 47 40-54 % Mean Corpuscular Volume 90 80-99 fL Mean Corpuscular Hemoglobin 31 25-34 pg Mean Corpuscular Hemoglobin Concent 34 32-36 g/dL Red Cell Distribution Width 12.4 10.0-14.5 % Platelet Count 226 130-400 10^3/uL Mean Platelet Volume 8.8 L 9.0-12.2 fL Immature Granulocyte % (Auto) 0 % Neutrophils (%) (Auto) 60 42-75 % Lymphocytes (%) (Auto) 30 12-44 % Monocytes (%) (Auto) 7 0-12 % Eosinophils (%) (Auto) 3 0-10 % Basophils (%) (Auto) 0 0-10 % Neutrophils # (Auto) 4.1 1.8-7.8 10^3/uL Lymphocytes # (Auto) 2.0 1.0-4.0 10^3/uL Monocytes # (Auto) 0.5 0.0-1.0 10^3/uL Eosinophils # (Auto) 0.2 0.0-0.3 10^3/uL Basophils # (Auto) 0.0 0.0-0.1 10^3/uL Immature Granulocyte # (Auto) 0.0 0.0-0.1 10^3/uL Sodium Level 139 135-145 MMOL/L Potassium Level 4.3 3.6-5.0 MMOL/L Chloride Level 106 98-107 MMOL/L Carbon Dioxide Level 20 L 21-32 MMOL/L Anion Gap 13 5-14 MMOL/L Blood Urea Nitrogen 19 H 7-18 MG/DL Creatinine 0.91 0.60-1.30 MG/DL Estimat Glomerular Filtration Rate 107 BUN/Creatinine Ratio 21 Glucose Level 94 70-105 MG/DL Calcium Level 9.3 8.5-10.1 MG/DL Corrected Calcium 9.1 8.5-10.1 MG/DL Total Bilirubin 0.4 0.1-1.0 MG/DL Aspartate Amino Transf (AST/SGOT) 30 5-34 U/L Alanine Aminotransferase (ALT/SGPT) 27 0-55 U/L Alkaline Phosphatase 62 40-136 U/L Total Protein 6.8 6.4-8.2 GM/DL Albumin 4.2 3.2-4.5 GM/DL Urine Color YELLOW Urine Clarity CLEAR Urine pH 7.0 5-9 Urine Specific [place] 1.020 1.016-1.022 Urine Protein NEGATIVE NEGATIVE Urine Glucose (UA) NEGATIVE NEGATIVE Urine Ketones NEGATIVE NEGATIVE Urine Nitrite NEGATIVE NEGATIVE Urine Bilirubin NEGATIVE NEGATIVE Urine Urobilinogen 0.2 < = 1.0 MG/DL Urine Leukocyte Esterase NEGATIVE NEGATIVE Urine RBC (Auto) NEGATIVE NEGATIVE Urine RBC NONE /HPF Urine WBC NONE /HPF Urine Squamous Epithelial Cells 0-2 /HPF Urine Crystals NONE /LPF Urine Bacteria NEGATIVE /HPF Urine Casts NONE /LPF Urine Mucus NEGATIVE /LPF Urine Culture Indicated NO (CARSON ALARCON MD) My Orders Orders - CARSON ALARCON MD Cbc With Automated Diff (08/23/21 09:31) Comprehensive Metabolic Panel (08/23/21 09:31) Ua Culture If Indicated (08/23/21 09:31) Ed Iv/Invasive Line Start (08/23/21 09:31) Lactated Ringers (Lr 1000 Ml Iv Solution (08/23/21 09:45) Ondansetron Injection (Zofran Injectio (08/23/21 09:45) Ketorolac Injection (Toradol Injection) (08/23/21 09:45) Ct Abdomen/Pelvis Wo (08/23/21 10:31) (CARSON ALARCON MD) Medications Given in ED (CARSON ALARCON MD) Vital Signs/I&O 08/23/21 08/23/21 09:28 12:23 Temp 36.2 36.2 Pulse 81 81 Resp 18 18 B/P (MAP) 140/101 (114) 140/101 O2 Delivery Room Air Room Air (CARSON ALARCON MD) Blood Pressure Mean: 114 Progress Progress Note : Progress Note Patient was treated with IV fluids, Zofran and Toradol. We discussed work-up options which could include CT of the abdomen and pelvis. Risks and benefits of CT scan were reviewed. Patient states he has had numerous renal stones in the past and he would like to aggressively pursue evaluation with CT scan acknowledging the risks. CT stone search was obtained. No ureteral stone was identified on the CT read. However, there was a tiny calcification near the right UVJ observed by this provider. It is unclear to me if this is a tiny phlebolith near the right UVJ or if this is a stone either sitting in the bladder or at the UVJ. No prior CT was available for comparison. Patient was provided with a strainer and discharged. See discharge instructions for further discussion. (CARSON ALARCON MD) Departure Impression Primary Impression: Right low back pain Qualified Codes: M54.50 - Low back pain, unspecified Additional Impressions: History of kidney stones Nausea Disposition: 01 HOME, SELF-CARE Condition: Improved Departure-Patient Inst. Decision time for Depature: 12:05 (CARSON ALARCON MD) Referrals: [facility] (PCP) Primary Care Physician ERNESTINE PENA (Family) Primary Care Physician Patient Instructions: Kidney Stone Diet, Kidney Stone, Adult ED, Low Back Pain in Adults Add. Discharge Instructions: Drink plenty of clear liquids to stay well-hydrated. It is possible you have a tiny kidney stone near your bladder on the right. You may strain your urine for the next several days. Bring any stone fragment collected to Dr. Byrne or your primary care provider. Follow-up with your primary care provider within the next couple of weeks. You may use ibuprofen up to 600 mg every 6 hours and/or Tylenol (acetaminophen) up to 1000 mg every 6 hours as needed for pain. You may use your Zofran (ondansetron) as previously prescribed for nausea vomiting. Call with questions or concerns. Return to care if you have any worsening symptoms despite following these instructions. All discharge instructions reviewed with patient and/or family. Voiced understanding. Medical Student Attestation and Attending Note: I have personally interviewed and examined this patient along with Key Celis, MS 4. I have reviewed student documentation including history, physical, and assessments. I agree with the documentation except where otherwise noted. Exam: General: Alert, oriented, no acute distress, well developed HEENT: Normocephalic and atraumatic Heart: Regular rate and rhythm without murmur Lungs: Clear to auscultation bilaterally with normal effort Back: No tenderness over the lumbar spine or paraspinous muscles Abdomen: Soft, nontender, nondistended, normal bowel sounds Neuropsych: Alert, oriented, no focal deficits Skin: Warm and dry without rashes (CARSON ALARCON MD) Copy Copies To 1: ALEXANDRE BYRNE MD Copies To 2: VASQUEZ DICKERSON DEREK MED STUDENT Aug 23, 2021 09:38 CARSON ALARCON MD Aug 23, 2021 12:07
[2021-08-23 09:41] LABS: BASOPHILS % (AUTO) 0 % (0-10); EOSINOPHILS # (AUTO) 0.2 10^3/uL (0.0-0.3); EOSINOPHILS % (AUTO) 3 % (0-10); HEMATOCRIT 47 % (40-54); LYMPHOCYTES % (AUTO) 30 % (12-44); MEAN CORPUSCULAR HEMOGLOBIN 31 pg (25-34); MEAN CORPUSCULAR HGB CONC 34 g/dL (32-36); MEAN CORPUSCULAR VOLUME 90 fL (80-99); MEAN PLATELET VOLUME 8.8 fL (9.0-12.2); MONOCYTES # (AUTO) 0.5 10^3/uL (0.0-1.0); MONOCYTES % (AUTO) 7 % (0-12); NEUTROPHILS # (AUTO) 4.1 10^3/uL (1.8-7.8); NEUTROPHILS % (AUTO) 60 % (42-75); PLATELET COUNT 226 10^3/uL (130-400); WHITE BLOOD COUNT 6.8 10^3/uL (4.3-11.0)
[2021-08-23] MEDS ORDERED: ONDANSETRON 4 MG/2 ML (SDV) Z0FRAN IVP ONE (09:45)
[2021-08-23] MEDS ORDERED: KETOROLAC 30 MG/ML VIAL IVP ONE (09:45)
[2021-08-23] MEDS ORDERED: LACTATED RINGERS 1,000 ML IV ONE (09:45)
[2021-08-23 09:51] LABS: ALBUMIN 4.2 GM/DL (3.2-4.5); POTASSIUM 4.3 MMOL/L (3.6-5.0)
[2021-08-23 09:52] LABS: CALCIUM 9.3 MG/DL (8.5-10.1)
[2021-08-23 09:53] LABS: TOTAL PROTEIN 6.8 GM/DL (6.4-8.2)
[2021-08-23 09:55] LABS: BILIRUBIN,TOTAL 0.4 MG/DL (0.1-1.0)
[2021-08-23 09:57] LABS: CREATININE SERUM 0.91 MG/DL (0.60-1.30)
[2021-08-23 10:32] LABS: BILIRUBIN,URINE NEGATIVE (NEGATIVE); CLARITY,URINE CLEAR; COLOR,URINE YELLOW; GLUCOSE, URINE (UA) NEGATIVE (NEGATIVE); KETONES,URINE NEGATIVE (NEGATIVE); LEUKOCYTE ESTERASE ,URINE NEGATIVE (NEGATIVE); NITRITE,URINE NEGATIVE (NEGATIVE); PROTEIN,URINE NEGATIVE (NEGATIVE)
[2021-08-23 10:47] LABS: BACTERIA,URINE NEGATIVE /HPF
[2021-08-23 10:48] LABS: SQUAMOUS EPITHELIAL CELL,UR 0-2 /HPF
--- NOTE | 2021-08-23 11:17 | Diagnostic Imaging Report ---
PROCEDURE: CT abdomen and pelvis without contrast. TECHNIQUE: Multiple contiguous axial images were obtained through the abdomen and pelvis without the use of intravenous contrast. Auto Exposure Controls were utilized during the CT exam to meet ALARA standards for radiation dose reduction. INDICATION: Bilateral flank pain and hematuria. Patient does have history of kidney stones. Correlation is made with prior CT from 08/10/2020. Lung bases are clear. Liver and gallbladder are unremarkable. There is no biliary ductal dilatation. The pancreas and spleen are unremarkable apart from multiple calcified granulomas in the spleen. No adrenal mass is detected. Punctate nonobstructing calculi in the left kidney are noted. There appears to be a punctate calculus lower pole right kidney. The dominant calculus upper pole right kidney noted on prior study one year earlier is no longer visualized and may have passed. No ureteral or bladder calculi are seen. No hydronephrosis. Aorta is nonaneurysmal. Bowel loops are normal caliber. Appendix is unremarkable. There is no obstruction. No free fluid. Prostate is stable. Bony structures are nonacute. IMPRESSION: 1. Bilateral nonobstructing nephrolithiasis. No definite ureteral calculi or hydronephrosis is detected. Dictated by: Dictated on workstation # [id number]
[2021-08-23 12:23] VITALS: BP 140/101
== END 2021-08-23 12:24 | disposition home or self-care (01) ==
LOC: EDUNIT# 08:56 → ER 08:57
DX: M54.50 Low back pain, unspecified (principal); R11.0 Nausea; F17.290 Nicotine dependence, other tobacco product, uncomplicated
CPT/HCPCS: 36415; 74176; 80053; 81000; 85025

== ENCOUNTER 2022-07-08 09:46 | Emergency (ER) | payer BC ==
[~2022-07-08 09:46] MED LIST changes: +ALBU8.5H6 IH; -RT-ALBUINH IH
[2022-07-08] MEDS ORDERED: KETOROLAC 30 MG/ML VIAL IVP STA (10:22)
[2022-07-08 10:45] LABS: BASOPHILS # (AUTO) 0.1 10^3/uL (0.0-0.1); BASOPHILS % (AUTO) 1 % (0-10); EOSINOPHILS # (AUTO) 0.2 10^3/uL (0.0-0.3); EOSINOPHILS % (AUTO) 3 % (0-10); HEMATOCRIT 49 % (40-54); HEMOGLOBIN 17.3 g/dL (13.3-17.7); LYMPHOCYTES % (AUTO) 29 % (12-44); MEAN CORPUSCULAR HEMOGLOBIN 32 pg (25-34); MEAN CORPUSCULAR HGB CONC 35 g/dL (32-36); MEAN CORPUSCULAR VOLUME 90 fL (80-99); MEAN PLATELET VOLUME 8.9 fL (9.0-12.2); MONOCYTES # (AUTO) 0.5 10^3/uL (0.0-1.0); MONOCYTES % (AUTO) 8 % (0-12); NEUTROPHILS # (AUTO) 4.2 10^3/uL (1.8-7.8); NEUTROPHILS % (AUTO) 59 % (42-75); PLATELET COUNT 237 10^3/uL (130-400)
[2022-07-08 10:56] LABS: POTASSIUM 5.1 MMOL/L (3.6-5.0)
[2022-07-08 10:57] LABS: CALCIUM 9.1 MG/DL (8.5-10.1)
[2022-07-08 11:11] LABS: BILIRUBIN,URINE NEGATIVE (NEGATIVE); CLARITY,URINE CLEAR; COLOR,URINE YELLOW; GLUCOSE, URINE (UA) NEGATIVE (NEGATIVE); KETONES,URINE NEGATIVE (NEGATIVE); LEUKOCYTE ESTERASE ,URINE NEGATIVE (NEGATIVE); NITRITE,URINE NEGATIVE (NEGATIVE); PROTEIN,URINE 1+ (NEGATIVE)
[2022-07-08 11:26] LABS: BACTERIA,URINE NEGATIVE /HPF
--- NOTE | 2022-07-08 11:35 | Diagnostic Imaging Report ---
US SCROTUM (Testicle) [id number] TECHNIQUE: Marques-scale, color doppler and spectral duplex imaging of the scrotum and its contents was performed. INDICATION: Right testicular pain COMPARISON: None available. FINDINGS: Right: The right testis is normal in size measuring 5.2 x 3.0 x 2.0 cm. It has homogenous echogenicity without mass or microcalcification. Blood flow is present in the right testis by color doppler imaging, and low resistance waveforms are present. Heterogeneous thickening of the epididymis with increased vascularity. No hydrocele or varicole. Left: The left testis is normal in size measuring 5.0 x 2.1 x 3.3 cm. It has homogenous echogenicity without mass or microcalcification. Blood flow is present in the left testis by color doppler imaging, and low resistance waveforms are present. The epididymis is normal. No hydrocele or varicole. IMPRESSION: 1. Hypervascular right epididymis may be due to acute epididymitis in the appropriate clinical setting. 2. No testicular torsion or mass. Dictated by: Dictated on workstation # [id number]
--- NOTE | 2022-07-08 11:39 | ED GU-Male ---
General Chief Complaint: - Reproductive Stated Complaint: TESTICULAR PAIN Nursing Triage Note: PT AMB TO [facility] 2 WITH C/O R TESTICULAR PAIN SINCE YESTERDAY. PT SEEN AT [facility] BY FERNY FUNEZ AND WAS TOLD TO COME TO ER Source: patient History of Present Illness Date Seen by Provider: Jul 08, 2022 Allergies and Home Medications Allergies Coded Allergies: meperidine (Verified Allergy, Unknown, 09/05/20) Patient Home Medication List Albuterol Sulfate (Ventolin Hfa) 1 Puff Puff, 2 PUFF IH Q4H PRN for COUGH Prescribed by: KIN ISAAC on 06/13/21 1116 Benzonatate (Tessalon Perles) 100 Mg Capsule, 100 MG PO Q6H PRN for COUGH Prescribed by: KIN ISAAC on 06/13/21 1113 Doxycycline Hyclate (Doxycycline Hyclate) 100 Mg Tablet, 100 MG PO BID Prescribed by: KIN ISAAC on 06/13/21 1113 Ketorolac Tromethamine (Ketorolac Tromethamine) 10 Mg Tablet, 10 MG PO Q6H Prescribed by: DALE DESOUZA on 07/08/22 1226 Lactobacillus Acidophilus (Probiotic) 1 Each Capsule, 1 EACH PO BID Prescribed by: KIN ISAAC on 06/13/21 1113 Levofloxacin (Levofloxacin) 500 Mg Tablet, 500 MG PO DAILY Prescribed by: DALE DESOUZA on 07/08/22 1226 Nitrofurantoin Monohyd/M-Cryst (Macrobid 100 mg Capsule) 100 Mg Capsule, 1 TAB PO BID WITH MEALS Prescribed by: SARA BEGUM on 09/05/20 0857 Pseudoephedrine HCl (Sudafed 12 Hour) 120 Mg Tablet.er, 120 MG PO BID PRN for CONGESTION Prescribed by: KIN ISAAC on 06/13/21 1115 Tamsulosin HCl (Flomax) 0.4 Mg Cap, 0.4 MG PO DAILY Prescribed by: GENI RODRIGUEZ on 08/14/20 0819 Tamsulosin HCl (Flomax) 0.4 Mg Cap, 0.4 MG PO DAILY Prescribed by: SARA BEGUM on 09/05/20 0857 Tramadol HCl (Tramadol HCl) 50 Mg Tablet, 50 MG PO Q4H PRN for PAIN-MODERATE (5- 7) Prescribed by: SARA BEGUM on 09/05/20 0857 Past Lhfptwq-Tecgvx-Bgwiyx Hx Patient Social History Tobacco Use?: Yes Tobacco type used: Cigarettes Substance use?: No Alcohol Use?: Yes Alcohol Frequency: Once in a while Pt feels they are or have been: No Immunizations Up To Date Tetanus Booster (TDap): Less than 5yrs PED Vaccines UTD: Yes Influenza Vaccine Up-to-Date: No; Not Current First/Initial COVID19 Vaccinat: 05/31/21 Second COVID19 Vaccination Supa: 05/31/21 Seasonal Allergies Seasonal Allergies: No Past Medical History Surgery/Hospitalization HX: ACL, LITHOTRISPY Surgeries: Yes (KIDNEY STONE BASKET REMOVAL x 2, ACL repair) Renal Respiratory: No Currently Using CPAP: No Currently Using BIPAP: No Cardiac: No Hypertension Neurological: No Reproductive Disorders: No HIV/AIDS: No Genitourinary: Yes Kidney Stones Gastrointestinal: No Musculoskeletal: No Endocrine: No HEENT: No Cancer: No Psychosocial: No Integumentary: No Blood Disorders: No Family Medical History No Pertinent Family Hx Physical Exam Vital Signs Vital Signs - First Documented 07/08/22 10:02 Temp 36.8 Pulse 76 Resp 18 B/P (MAP) 154/109 (124) Capillary Refill : Height, Weight, BMI Height: 5'6.00" Weight: 230lbs. oz. 104.197665hd; 30.00 BMI Method:Stated Progress/Results/Core Measures Suspected Sepsis SIRS Temperature: Pulse: 76 Respiratory Rate: 18 Laboratory Tests 07/08/22 10:38: White Blood Count 7.0 Blood Pressure 154 /109 Mean: 124 Laboratory Tests 07/08/22 10:38: Creatinine 1.00, Platelet Count 237 Results/Orders Lab Results Laboratory Tests Test 07/08/22 10:38 07/08/22 11:05 Range/Units White Blood Count 7.0 4.3-11.0 10^3/uL Red Blood Count 5.46 4.30-5.52 10^6/uL Hemoglobin 17.3 13.3-17.7 g/dL Hematocrit 49 40-54 % Mean Corpuscular Volume 90 80-99 fL Mean Corpuscular Hemoglobin 32 25-34 pg Mean Corpuscular Hemoglobin Concent 35 32-36 g/dL Red Cell Distribution Width 13.1 10.0-14.5 % Platelet Count 237 130-400 10^3/uL Mean Platelet Volume 8.9 L 9.0-12.2 fL Immature Granulocyte % (Auto) 1 % Neutrophils (%) (Auto) 59 42-75 % Lymphocytes (%) (Auto) 29 12-44 % Monocytes (%) (Auto) 8 0-12 % Eosinophils (%) (Auto) 3 0-10 % Basophils (%) (Auto) 1 0-10 % Neutrophils # (Auto) 4.2 1.8-7.8 10^3/uL Lymphocytes # (Auto) 2.0 1.0-4.0 10^3/uL Monocytes # (Auto) 0.5 0.0-1.0 10^3/uL Eosinophils # (Auto) 0.2 0.0-0.3 10^3/uL Basophils # (Auto) 0.1 0.0-0.1 10^3/uL Immature Granulocyte # (Auto) 0.1 0.0-0.1 10^3/uL Sodium Level 137 135-145 MMOL/L Potassium Level 5.1 H 3.6-5.0 MMOL/L Chloride Level 106 98-107 MMOL/L Carbon Dioxide Level 22 21-32 MMOL/L Anion Gap 9 5-14 MMOL/L Blood Urea Nitrogen 17 7-18 MG/DL Creatinine 1.00 0.60-1.30 MG/DL Estimat Glomerular Filtration Rate 95 BUN/Creatinine Ratio 17 Glucose Level 92 70-105 MG/DL Calcium Level 9.1 8.5-10.1 MG/DL Urine Color YELLOW Urine Clarity CLEAR Urine pH 6.0 5-9 Urine Specific [place] >=1.030 1.016-1.022 Urine Protein 1+ H NEGATIVE Urine Glucose (UA) NEGATIVE NEGATIVE Urine Ketones NEGATIVE NEGATIVE Urine Nitrite NEGATIVE NEGATIVE Urine Bilirubin NEGATIVE NEGATIVE Urine Urobilinogen 0.2 < = 1.0 MG/DL Urine Leukocyte Esterase NEGATIVE NEGATIVE Urine RBC (Auto) NEGATIVE NEGATIVE Urine RBC NONE /HPF Urine WBC NONE /HPF Urine Crystals NONE /LPF Urine Bacteria NEGATIVE /HPF Urine Casts NONE /LPF Urine Mucus NEGATIVE /LPF Urine Culture Indicated NO My Orders Orders - DALE DESOUZA DO Ed Iv/Invasive Line Start (07/08/22 10:11) Us Scrotum (Testicle) [id number] (07/08/22 10:11) Ua Culture If Indicated (07/08/22 10:11) Basic Metabolic Panel (07/08/22 10:22) Cbc With Automated Diff (07/08/22 10:22) Ketorolac Injection (Toradol Injection) (07/08/22 10:22) Neis Noble Dna Urine Test (07/08/22 11:39) Chlamydia Trachomatis Urine (07/08/22 11:39) Ceftriaxone 1 Gm Pre-Mix (Rocephin 1 Gm (07/08/22 11:45) Azithromycin Tablet (Zithromax Tablet) (07/08/22 11:45) Ct Abd/Pelvis Wo(Kidney Stone) (07/08/22 11:44) Abdomen/Kub 1view (07/08/22 11:44) Medications Given in ED Current Medications Medications Dose Ordered Sig/Mellisa Route Start Time Stop Time Status Last Admin Dose Admin Azithromycin 1,000 mg ONCE ONCE PO 07/08/22 11:45 07/08/22 11:46 DC 07/08/22 11:46 1,000 MG Ceftriaxone Sodium/Dextrose 50 ml @ 100 mls/hr ONCE ONCE IV 07/08/22 11:45 07/08/22 12:14 DC 07/08/22 11:46 100 MLS/HR Vital Signs/I&O 07/08/22 10:02 Temp 36.8 Pulse 76 Resp 18 B/P (MAP) 154/109 (124) Capillary Refill : Blood Pressure Mean: 124 Progress Note : Progress Note GIVEN: -IV FLUIDS -TORADOL -ANTIBIOTICS REVIEWED ULTRASOUND, LAB AND UA RESULTS, AND HE WOULD STILL LIKED TO BE CHECKED FOR KIDNEY STONE CT ABDOMEN/PELVIS ORDERED. UNEVENTFUL ER STAY VITALS STABLE REVIEWED TEST RESULTS, ANTICIPATED COURSE, SYMPTOMATIC TREATMENT, MEDICATIONS, NEED FOR FOLLOW UP AND RETURN PRECAUTIONS Diagnostic Imaging Comments SCROTAL ULTRASOUND--PER RADIOLOGIST REPORT AT 1138 FINDINGS: Right: The right testis is normal in size measuring 5.2 x 3.0 x 2.0 cm. It has homogenous echogenicity without mass or microcalcification. Blood flow is present in the right testis by color doppler imaging, and low resistance waveforms are present. Heterogeneous thickening of the epididymis with increased vascularity. No hydrocele or varicole. Left: The left testis is normal in size measuring 5.0 x 2.1 x 3.3 cm. It has homogenous echogenicity without mass or microcalcification. Blood flow is present in the left testis by color doppler imaging, and low resistance waveforms are present. The epididymis is normal. No hydrocele or varicole. IMPRESSION: 1. Hypervascular right epididymis may be due to acute epididymitis in the appropriate clinical setting. 2. No testicular torsion or mass. CT ABDOMEN/PELVIS--PER RADIOLOGIST REPORT AT 1222 Comparison is made with prior CT for 08/23/2021. Lung bases are clear. Liver and gallbladder are unremarkable. No liver mass or biliary duct dilatation is seen. The pancreas is unremarkable. Spleen contains numerous calcified granulomas. No adrenal mass is detected. Punctate nonobstructing renal calculi are again noted bilaterally. No ureteral calculi are seen. There is no hydronephrosis. No bladder calculi are detected. Aorta is nonaneurysmal. Bowel loops are nonobstructed. Appendix is visualized in the right lower quadrant and appears unremarkable. There is no ascites. Prostate is unremarkable. There is a fat-containing left inguinal hernia. Bony structures are nonacute. IMPRESSION: 1. Bilateral nonobstructing nephrolithiasis. No ureteral calculi or hydronephrosis is detected. 2. No CT evidence of acute appendicitis. 3. Fat-containing left inguinal hernia. Reviewed: Reviewed by Me Departure Impression Primary Impression: Epididymitis Disposition: HOME, SELF-CARE Condition: Stable Departure-Patient Inst. Decision time for Depature: 11:39 Referrals: [facility] [place] (PCP/Family) Primary Care Physician Patient Instructions: Epididymitis (DC) Add. Discharge Instructions: HOME, REST FOLLOW UP WITH YOUR UROLOGIST SCHEDULED RETURN TO ER IF SYMPTOMS WORSEN All discharge instructions reviewed with patient and/or family. Voiced understanding. Scripts Ketorolac Tromethamine (Ketorolac Tromethamine) 10 Mg Tablet 10 MG PO Q6H for Pain, #15 TAB Prov: DALE DESOUZA DO 07/08/22 Levofloxacin (Levofloxacin) 500 Mg Tablet 500 MG PO DAILY, #10 TAB 0 Refills Prov: DALE DESOUZA DO 07/08/22 Work/School Note: Work Release Form Date Seen in the Emergency Department: Jul 08, 2022 Return to Work: Jul 09, 2022 Restrictions: No Restrictions DALE DESOUZA DO Jul 08, 2022 11:38
[2022-07-08] MEDS ORDERED: cefTRIAXone 1 GM PRE-MIX 50 ML IV ONE (11:45)
[2022-07-08] MEDS ORDERED: AZITHROMYCIN 250 MG TAB (ZITHROMAX) PO ONE (11:45)
--- NOTE | 2022-07-08 12:11 | Diagnostic Imaging Report ---
PROCEDURE: CT urinary tract, rule out kidney stone. TECHNIQUE: Multiple contiguous axial images were obtained through the abdomen and pelvis without the use of intravenous contrast. Auto Exposure Controls were utilized during the CT exam to meet ALARA standards for radiation dose reduction. INDICATION: Right-sided abdominal pain for 2 days. Patient has history of kidney stones. Comparison is made with prior CT for 08/23/2021. Lung bases are clear. Liver and gallbladder are unremarkable. No liver mass or biliary duct dilatation is seen. The pancreas is unremarkable. Spleen contains numerous calcified granulomas. No adrenal mass is detected. Punctate nonobstructing renal calculi are again noted bilaterally. No ureteral calculi are seen. There is no hydronephrosis. No bladder calculi are detected. Aorta is nonaneurysmal. Bowel loops are nonobstructed. Appendix is visualized in the right lower quadrant and appears unremarkable. There is no ascites. Prostate is unremarkable. There is a fat-containing left inguinal hernia. Bony structures are nonacute. IMPRESSION: 1. Bilateral nonobstructing nephrolithiasis. No ureteral calculi or hydronephrosis is detected. 2. No CT evidence of acute appendicitis. 3. Fat-containing left inguinal hernia. Dictated by: Dictated on workstation # [id number]
[2022-07-08] MEDS ORDERED: KETO10TA PO (12:26)
[2022-07-08] MEDS ORDERED: LEVO-55 PO (12:26)
[2022-07-08 12:33] VITALS: BP 165/109
--- NOTE | 2022-07-08 12:49 | Diagnostic Imaging Report ---
ABDOMEN/KUB 1VIEW INDICATION: Abdominal pain COMPARISON: CT abdomen and pelvis performed earlier same day. TECHNIQUE: AP view of the abdomen FINDINGS: Nonobstructive bowel gas pattern. No features of free intraperitoneal air. Scattered pelvic phleboliths are noted. Patient's punctate nonobstructing renal stones seen on CT are not radiographically apparent. Normal regional skeleton. IMPRESSION: Patient's known punctate bilateral renal stones are not radiographically apparent. Dictated by: Dictated on workstation # [id number]
== END 2022-07-08 12:36 | disposition home or self-care (01) ==
LOC: EDUNIT# 09:46 → ER 09:48
DX: N45.1 Epididymitis (principal); N20.0 Calculus of kidney; K40.90 Unilateral inguinal hernia, without obstruction or gangrene, not specified as recurrent
CPT/HCPCS: 36415; 74018; 74176; 76870; 80048; 81000; 85025; 87491; 87591; 96365; 96375

== ENCOUNTER 2023-03-13 20:58 | Emergency (ER) | payer BC ==
[~2023-03-13] VITALS: Ht 167.7 cm; Wt 101.2 kg
[~2023-03-13 20:58] MED LIST changes: +KETO10TA PO; +LEVO-55 PO
[2023-03-13] MEDS ORDERED: KETOROLAC INJ 30 MG/ML VIAL IVP STA (21:15)
[2023-03-13] MEDS ORDERED: LACTATED RINGERS 1,000 ML 1,000 ML IV ONE (21:15)
[2023-03-13 21:21] LABS: HEMATOCRIT 48 % (40-54); HEMOGLOBIN 17.5 g/dL (13.3-17.7); MEAN CORPUSCULAR HEMOGLOBIN 34 pg (25-34); MEAN CORPUSCULAR HGB CONC 36 g/dL (32-36); MEAN CORPUSCULAR VOLUME 94 fL (80-99); MEAN PLATELET VOLUME 8.7 fL (9.0-12.2); PLATELET COUNT 206 10^3/uL (130-400); WHITE BLOOD COUNT 8.3 10^3/uL (4.3-11.0)
--- NOTE | 2023-03-13 21:21 | ED GU-Male ---
General Stated Complaint: ABD PAIN, BLOOD IN URINE, POSS KIDNEYSTONE Source: patient History of Present Illness Date Seen by Provider: Mar 13, 2023 Time Seen by Provider: 21:08 Initial Comments PT ARRIVES VIA POV FROM HOME C/O LLQ PAIN RADIATING TO LEFT GROIN AREA FOR THE LAST SEVERAL DAYS HE HAS HAD BLOOD IN HIS URINE, URINARY URGENCY, PAIN/BURNING ON URINATION, AND DIFFICULTY URINATING--CAN'T VOID TONIGHT NO NAUSEA/VOMITING NO KNOWN FEVER HE HAS HAD MULTIPLE KIDNEY STONES IN THE PAST AND THIS IS THE SAME HE HAS HAD LITHOTRIPSY X 4, AND BASKET REMOVAL X 2 HE LAST PASSED A STONE ON HIS OWN ABOUT 2 WEEKS AGO--STATES IT WAS A SMALL STONE, AND HE DID NOT SEEK CARE FOR THAT EPISODE PT HAS NOT TAKEN ANYTHING FOR PAIN OR SYMPTOMS AT ANY TIME HAS NOT SOUGHT CARE UNTIL TONIGHT ( THURSDAY NIGHT) PT SMOKES 1 PPD, DRINKS "A COUPLE" OF DRINKS DAILY, DENIES DRUG USE PCP: [facility] [place]: DR. BRIAN Allergies and Home Medications Allergies Coded Allergies: meperidine (Verified Allergy, Unknown, 09/05/20) Patient Home Medication List Home Medication List Reviewed: Yes Albuterol Sulfate (Ventolin Hfa) 1 Puff Puff, 2 PUFF IH Q4H PRN for COUGH Prescribed by: KIN ISAAC on 06/13/21 111 Benzonatate (Tessalon Perles) 100 Mg Capsule, 100 MG PO Q6H PRN for COUGH Prescribed by: KIN ISAAC on 06/13/21 1113 Ciprofloxacin HCl (Ciprofloxacin HCl) 500 Mg Tablet, 500 MG PO BID Prescribed by: DALE DESOUZA on 03/13/23 2214 Doxycycline Hyclate (Doxycycline Hyclate) 100 Mg Tablet, 100 MG PO BID Prescribed by: KIN ISAAC on 06/13/21 1113 Ketorolac Tromethamine (Ketorolac Tromethamine) 10 Mg Tablet, 10 MG PO Q6H Prescribed by: DALE DESOUZA on 07/08/22 1226 Lactobacillus Acidophilus (Probiotic) 1 Each Capsule, 1 EACH PO BID Prescribed by: KIN ISAAC on 06/13/21 1113 Levofloxacin (Levofloxacin) 500 Mg Tablet, 500 MG PO DAILY Prescribed by: DALE DESOUZA on 07/08/22 1226 Metronidazole (Metronidazole) 500 Mg Tablet, 500 MG PO QID Prescribed by: DALE DESOUZA on 03/13/232213 Nitrofurantoin Monohyd/M-Cryst (Macrobid 100 mg Capsule) 100 Mg Capsule, 1 TAB PO BID WITH MEALS Prescribed by: SARA BEGUM on 09/05/20 0857 Pseudoephedrine HCl (Sudafed 12 Hour) 120 Mg Tablet.er, 120 MG PO BID PRN for CONGESTION Prescribed by: KIN ISAAC on 06/13/21 1115 Tamsulosin HCl (Flomax) 0.4 Mg Cap, 0.4 MG PO DAILY Prescribed by: GENI RODRIGUEZ on 08/14/20 0819 Tamsulosin HCl (Flomax) 0.4 Mg Cap, 0.4 MG PO DAILY Prescribed by: SARA BEGUM on 09/05/20 08 Tramadol HCl (Tramadol HCl) 50 Mg Tablet, 50 MG PO Q4H PRN for PAIN-MODERATE (5- 7) Prescribed by: SARA BEGUM on 09/05/20 0857 Tramadol HCl (Tramadol HCl) 50 Mg Tablet, 50 MG PO Q4H Prescribed by: DALE DESOUZA on 03/13/232213 Review of Systems Review of Systems Constitutional: no symptoms reported Respiratory: no symptoms reported Cardiovascular: no symptoms reported Gastrointestinal: see HPI Genitourinary: see HPI Musculoskeletal: see HPI Skin: no symptoms reported Psychiatric/Neurological: No Symptoms Reported Endocrine: No Symptoms Reported Hematologic/Lymphatic: No Symptoms Reported Past Ifyctcz-Urqdas-Necwia Hx Patient Social History Tobacco Use?: Yes Tobacco type used: Cigarettes Smoking Status: Current Everyday Smoker Substance use?: No Alcohol Use?: Yes Alcohol Frequency: Daily Immunizations Up To Date Tetanus Booster (TDap): Less than 5yrs PED Vaccines UTD: Yes First/Initial COVID19 Vaccinat: 05/31/21 Second COVID19 Vaccination Supa: 05/31/21 Seasonal Allergies Seasonal Allergies: No Past Medical History Surgery/Hospitalization HX: ACL, LITHOTRISPY Surgeries: Yes (KIDNEY STONE BASKET REMOVAL x 2, LITHOTRIPSY X 4; ACL repair) Orthopedic, Renal Respiratory: No Currently Using CPAP: No Currently Using BIPAP: No Cardiac: Yes Hypertension Neurological: No Reproductive Disorders: No HIV/AIDS: No Genitourinary: Yes Kidney Stones Gastrointestinal: No Musculoskeletal: No Endocrine: No HEENT: No Cancer: No Psychosocial: No Integumentary: No Blood Disorders: No Family Medical History No Pertinent Family Hx SOCIAL HISTORY: -SMOKES 1 PPD -ETOH--"COUPLE OF DRINKS" DAILY -DRUGS--DENIES USE Physical Exam Vital Signs Vital Signs - First Documented 03/13/23 21:08 Temp 37.2 Pulse 93 Resp 16 B/P (MAP) 162/114 (130) Pulse Ox 96 O2 Delivery Room Air Capillary Refill : Height, Weight, BMI Height: 5'6.00" Weight: 230lbs. oz. 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, no motor/sensory deficits, alert, oriented x 3, other (SPEECH CLEAR, GAIT STEADY) Skin: normal color, warm/dry Progress/Results/Core Measures Suspected Sepsis SIRS Temperature: Pulse: Respiratory Rate: Laboratory Tests 03/13/23 21:14: White Blood Count 8.3 Blood Pressure / Mean: Laboratory Tests 03/13/23 21:14: Creatinine 0.89, Platelet Count 206, Total Bilirubin 0.3 Results/Orders Lab Results Laboratory Tests Test 03/13/23 21:14 03/13/23 21:22 Range/Units White Blood Count 8.3 4.3-11.0 10^3/uL Red Blood Count 5.17 4.30-5.52 10^6/uL Hemoglobin 17.5 13.3-17.7 g/dL Hematocrit 48 40-54 % Mean Corpuscular Volume 94 80-99 fL Mean Corpuscular Hemoglobin 34 25-34 pg Mean Corpuscular Hemoglobin Concent 36 32-36 g/dL Red Cell Distribution Width 12.9 10.0-14.5 % Platelet Count 206 130-400 10^3/uL Mean Platelet Volume 8.7 L 9.0-12.2 fL Sodium Level 139 135-145 MMOL/L Potassium Level 3.6 3.6-5.0 MMOL/L Chloride Level 107 98-107 MMOL/L Carbon Dioxide Level 19 L 21-32 MMOL/L Anion Gap 13 5-14 MMOL/L Blood Urea Nitrogen 6 L 7-18 MG/DL Creatinine 0.89 0.60-1.30 MG/DL Estimat Glomerular Filtration Rate 108 BUN/Creatinine Ratio 7 Glucose Level 90 70-105 MG/DL Calcium Level 8.8 8.5-10.1 MG/DL Corrected Calcium 8.5 8.5-10.1 MG/DL Total Bilirubin 0.3 0.1-1.0 MG/DL Aspartate Amino Transf (AST/SGOT) 46 H 5-34 U/L Alanine Aminotransferase (ALT/SGPT) 56 H 0-55 U/L Alkaline Phosphatase 86 40-136 U/L Total Protein 7.2 6.4-8.2 GM/DL Albumin 4.4 3.2-4.5 GM/DL Serum Alcohol 223 H <10 MG/DL Urine Color YELLOW Urine Clarity CLEAR Urine pH 5.5 5-9 Urine Specific [place] 1.015 L 1.016-1.022 Urine Protein 2+ H NEGATIVE Urine Glucose (UA) NEGATIVE NEGATIVE Urine Ketones NEGATIVE NEGATIVE Urine Nitrite NEGATIVE NEGATIVE Urine Bilirubin NEGATIVE NEGATIVE Urine Urobilinogen 0.2 < = 1.0 MG/DL Urine Leukocyte Esterase NEGATIVE NEGATIVE Urine RBC (Auto) TRACE H NEGATIVE Urine RBC RARE /HPF Urine WBC RARE /HPF Urine Squamous Epithelial Cells NONE /HPF Urine Crystals NONE /LPF Urine Bacteria TRACE /HPF Urine Casts NONE /LPF Urine Mucus NEGATIVE /LPF Urine Culture Indicated NO Urine Opiates Screen NEGATIVE NEGATIVE Urine Oxycodone Screen NEGATIVE NEGATIVE Urine Methadone Screen NEGATIVE NEGATIVE Urine Propoxyphene Screen NEGATIVE NEGATIVE Urine Barbiturates Screen NEGATIVE NEGATIVE Ur Tricyclic Antidepressants Screen NEGATIVE NEGATIVE Urine Phencyclidine Screen NEGATIVE NEGATIVE Urine Amphetamines Screen NEGATIVE NEGATIVE Urine Methamphetamines Screen NEGATIVE NEGATIVE Urine Benzodiazepines Screen NEGATIVE NEGATIVE Urine Cocaine Screen NEGATIVE NEGATIVE Urine Cannabinoids Screen NEGATIVE NEGATIVE My Orders Orders - DALE DESOUZA DO Ed Iv/Invasive Line Start (03/13/23 21:09) Monitor-Rhythm Ecg Trace Only (03/13/23 21:09) Ct Abd/Pelvis Wo(Kidney Stone) (03/13/23 21:09) Abdomen/Kub 1view (03/13/23 21:09) Cbc No Diff (03/13/23 21:09) Comprehensive Metabolic Panel (03/13/23 21:09) Ua Culture If Indicated (03/13/23 21:09) Ed Iv/Invasive Line Start (03/13/23 21:15) Lactated Ringers 1,000 Ml (Lactated Ring (03/13/23 21:15) Ketorolac Injection (Ketorolac Injection (03/13/23 21:15) Alcohol (03/13/23 21:15) Drug Screen Stat (Urine) (03/13/23 21:29) Ciprofloxacin Tablet (Ciprofloxacin Tabl (03/13/23 22:15) Metronidazole Tablet (Metronidazole Tabl (03/13/23 22:15) Rx-Tramadol Hcl (Rx-Ultram) (03/13/23 22:17) Medications Given in ED Current Medications Medications Dose Ordered Sig/Mellisa Route Start Time Stop Time Status Last Admin Dose Admin Lactated Ringer's 1,000 ml @ 0 mls/hr Q0M ONCE IV 03/13/23 21:15 03/13/23 21:16 DC 03/13/23 21:20 999 MLS/HR Vital Signs/I&O 03/13/23 21:08 Temp 37.2 Pulse 93 Resp 16 B/P (MAP) 162/114 (130) Pulse Ox 96 O2 Delivery Room Air Capillary Refill : Progress Note : Progress Note VITALS ON ARRIVAL: GIVEN: -IV FLUIDS -TORADOL -CIPRO + FLAGYL LABS: -CBC NORMAL -CMP NORMAL, VERY SLIGHT ELEVATION IN LFT'S -UA TRACE RBC -ETOH 223 CT SCAN AND KUB--NO URETERAL STONES OR HYDRONEPHROSIS, DOES SHOW DIVERTICULITIS SYMPTOMS IMPROVED AT DISMISSAL UNEVENTFUL ER STAY, VITALS STABLE, AFEBRILE REVIEWED PRIOR RECORDS, INCLUDING ER VISITS, ADMITS/H&P'S/CONSULTS/DISCHARGE SUMMARIES, TESTS/PROCEDURES MANY VISITS FOR KIDNEY STONES Diagnostic Imaging Comments CT ABDOMEN/PELVIS--PER RADIOLOGIST REPORT AT 2207 05/07/2023. FINDINGS: Similar to the previous study, there are multiple punctate calcifications centrally in both kidneys. There is no evidence of hydronephrosis. No ureteric stone or dilatation is identified. Unenhanced images of the liver, gallbladder, pancreas, adrenal glands, and spleen reveal no acute abnormality although note is made of calcified granulomas in the splenic parenchyma. There is no evidence of free fluid. There are subcentimeter mesenteric and retroperitoneal lymph nodes without evidence of pathologically enlarged adenopathy. The appendix has a normal appearance. There is a small focal region of edema or inflammation involving the sigmoid colon in its proximal aspect which may contribute to patient's symptoms. There is no evidence organized fluid collection. The unopacified bladder is unremarkable. IMPRESSION: 1. Mild focal inflammation of the sigmoid colon, compatible with colitis, possibly diverticulitis, or less likely epiploic appendagitis. Clinical correlation and possible followup CT or endoscopy would be useful to document resolution and to exclude other underlying pathology. 2. Bilateral nephrolithiasis without obstructive uropathy. Reviewed: Reviewed by Me Departure Impression Primary Impression: DIVERTICULITIS Additional Impression: HX OF KIDNEY STONES Disposition: HOME, SELF-CARE Condition: Stable Departure-Patient Inst. Decision time for Depature: 22:10 Referrals: [facility] [place] Primary Care Physician KEELEY EASON DO Patient Instructions: Diverticulitis (DC) Add. Discharge Instructions: CLEAR LIQUIDS--WATER, BROTH, JELLO, GATORADE NO ALCOHOL NO FOOD UNTIL YOU ARE RECHECKED AND CLEARED FOLLOW UP WITH DR. EASON ON THURSDAY FOR FURTHER CARE, RETURN TO ER IF SYMPTOMS WORSEN Scripts Tramadol HCl (Tramadol HCl) 50 Mg Tablet 50 MG PO Q4H for Pain, #20 TAB Prov: DALE DESOUZA DO 03/13/23 Metronidazole (Metronidazole) 500 Mg Tablet 500 MG PO QID, #40 TAB Prov: DALE DESOUZA DO 03/13/23 Ciprofloxacin HCl (Ciprofloxacin HCl) 500 Mg Tablet 500 MG PO BID, #20 TAB Prov: DALE DESOUZA DO 03/13/23 DALE DESOUZA DO Mar 13, 2023 21:21
[2023-03-13 21:32] LABS: ALBUMIN 4.4 GM/DL (3.2-4.5); POTASSIUM 3.6 MMOL/L (3.6-5.0)
[2023-03-13 21:33] LABS: CALCIUM 8.8 MG/DL (8.5-10.1)
[2023-03-13 21:34] LABS: TOTAL PROTEIN 7.2 GM/DL (6.4-8.2)
[2023-03-13 21:36] LABS: BILIRUBIN,TOTAL 0.3 MG/DL (0.1-1.0)
[2023-03-13 21:38] LABS: CREATININE SERUM 0.89 MG/DL (0.60-1.30)
[2023-03-13 21:39] LABS: BACTERIA,URINE TRACE /HPF; BILIRUBIN,URINE NEGATIVE (NEGATIVE); CLARITY,URINE CLEAR; COLOR,URINE YELLOW; GLUCOSE, URINE (UA) NEGATIVE (NEGATIVE); KETONES,URINE NEGATIVE (NEGATIVE); LEUKOCYTE ESTERASE ,URINE NEGATIVE (NEGATIVE); NITRITE,URINE NEGATIVE (NEGATIVE); PH,URINE 5.5 (5-9); PROTEIN,URINE 2+ (NEGATIVE); RBC,URINE RARE /HPF; WBC,URINE RARE /HPF
[2023-03-13 21:53] LABS: AMPHETAMINE SCREEN, URINE NEGATIVE (NEGATIVE); BARBITURATE SCREEN URINE NEGATIVE (NEGATIVE); CANNABINOID SCREEN, URINE NEGATIVE (NEGATIVE); COCAINE SCREEN URINE NEGATIVE (NEGATIVE); METHADONE STAT NEGATIVE (NEGATIVE); OPIATE SCREEN URINE NEGATIVE (NEGATIVE); OXYCODONE STAT NEGATIVE (NEGATIVE); PROPOXYPHENE STAT NEGATIVE (NEGATIVE); TRICYCLIC ANTIDEPRESSANTS SCRE NEGATIVE (NEGATIVE)
--- NOTE | 2023-03-13 22:00 | Diagnostic Imaging Report ---
PROCEDURE: CT urinary tract, rule out kidney stone. TECHNIQUE: Multiple contiguous axial images were obtained through the abdomen and pelvis without the use of intravenous contrast. Auto Exposure Controls were utilized during the CT exam to meet ALARA standards for radiation dose reduction. INDICATION: Flank pain. COMPARISON: 05/07/2023. FINDINGS: Similar to the previous study, there are multiple punctate calcifications centrally in both kidneys. There is no evidence of hydronephrosis. No ureteric stone or dilatation is identified. Unenhanced images of the liver, gallbladder, pancreas, adrenal glands, and spleen reveal no acute abnormality although note is made of calcified granulomas in the splenic parenchyma. There is no evidence of free fluid. There are subcentimeter mesenteric and retroperitoneal lymph nodes without evidence of pathologically enlarged adenopathy. The appendix has a normal appearance. There is a small focal region of edema or inflammation involving the sigmoid colon in its proximal aspect which may contribute to patient's symptoms. There is no evidence organized fluid collection. The unopacified bladder is unremarkable. IMPRESSION: 1. Mild focal inflammation of the sigmoid colon, compatible with colitis, possibly diverticulitis, or less likely epiploic appendagitis. Clinical correlation and possible followup CT or endoscopy would be useful to document resolution and to exclude other underlying pathology. 2. Bilateral nephrolithiasis without obstructive uropathy. Dictated by: Dictated on workstation # [id number]
--- NOTE | 2023-03-13 22:04 | Diagnostic Imaging Report ---
INDICATION: Abdominal pain. TECHNIQUE/COMPARISON: Supine images of the abdomen were obtained with comparison made to the study of 07/08/2022. FINDINGS: The bowel gas pattern is unremarkable. There is no evidence of free intraperitoneal gas or pneumatosis. Minimal calcification projecting over the left kidney is likely related to nephrolithiasis. No stone is seen along the course of the ureters. There are bilateral calcified phleboliths in the pelvis. IMPRESSION: No evidence of acute abnormality with probable minimal nephrolithiasis. Dictated by: Dictated on workstation # [id number]
[2023-03-13] MEDS ORDERED: CIPR500T5 PO (22:14)
[2023-03-13] MEDS ORDERED: METR-145 PO (22:14)
[2023-03-13] MEDS ORDERED: TRAM50TA3 PO (22:14)
[2023-03-13] MEDS ORDERED: metroNIDAZOLE 500 MG TABLET PO ONE (22:15)
[2023-03-13] MEDS ORDERED: CIPROFLOXACIN 500 MG TABLET PO SCH (22:15)
[2023-03-13 22:23] VITALS: BP 147/59
== END 2023-03-13 22:23 | disposition home or self-care (01) ==
LOC: EDUNIT# 20:58 → ER 21:03
DX: K57.92 Diverticulitis of intestine, part unspecified, without perforation or abscess without bleeding (principal); F17.210 Nicotine dependence, cigarettes, uncomplicated; Z87.442 Personal history of urinary calculi
CPT/HCPCS: 74018; 74176; 80053; 80306; 81000; 85027; 93041; 96361; 96374; 99284; G0480; 36415; 80320

== ENCOUNTER 2023-04-17 08:10 | Emergency (ER) | payer BC ==
[~2023-04-17] VITALS: Ht 165.1 cm; Wt 108.8 kg
[~2023-04-17 08:10] MED LIST changes: +CIPR500T5 PO; +METR-145 PO; +TRAM50TA3 PO
--- NOTE | 2023-04-17 08:40 | ED Lower Extremity ---
General Chief Complaint: Lower Extremity Stated Complaint: SWOLLEN FEET | Nursing Triage Note: PT AMB TO RM 5 WITH COMPLAINT OF BILATERAL FEET SWEELING AND SORES. Source: patient Exam Limitations: no limitations History of Present Illness Date Seen by Provider: Apr 17, 2023 Time Seen by Provider: 08:40 Initial Comments Patient is a 42-year-old male who presents to the emergency room with a chief complaint of sores to bilateral feet and swelling and pain. He states its been there for at least 2 or 3 days. Started out with itching, he started using some [id number] foot spray but has continued to have discomfort. He denies fevers or chills. No redness, swelling up the legs. Seems to involve the soles of both feet. He has not treated his shoes. States that he has had athlete's foot foot before but has never had it this bad. Denies history of diabetes. Had diverticulitis about a month ago and was seen here. Is a smoker. Counseled on cessation. Onset: other (3-4 days) Severity: severe Pain/Injury Location: bilateral foot Method of Injury: other (infection) Modifying Factors: Improves With Immobilization Allergies and Home Medications Allergies Coded Allergies: meperidine (Verified Allergy, Unknown, 09/05/20) Patient Home Medication List Home Medication List Reviewed: Yes Albuterol Sulfate (Ventolin Hfa) 1 Puff Puff, 2 PUFF IH Q4H PRN for COUGH Prescribed by: KIN ISAAC on 06/13/21 1116 Benzonatate (Tessalon Perles) 100 Mg Capsule, 100 MG PO Q6H PRN for COUGH Prescribed by: KIN ISAAC on 06/13/21 1113 Ciprofloxacin HCl (Ciprofloxacin HCl) 500 Mg Tablet, 500 MG PO BID Prescribed by: DALE DESOUZA on 03/13/23 2214 Doxycycline Hyclate (Doxycycline Hyclate) 100 Mg Tablet, 100 MG PO BID Prescribed by: KIN ISAAC on 06/13/21 1113 Fluconazole (Diflucan) 200 Mg Tablet, 200 MG PO once a week Prescribed by: TICO GABRIEL on 04/17/23 0904 Ketorolac Tromethamine (Ketorolac Tromethamine) 10 Mg Tablet, 10 MG PO Q6H Prescribed by: DALE DESOUZA on 07/08/22 1226 Lactobacillus Acidophilus (Probiotic) 1 Each Capsule, 1 EACH PO BID Prescribed by: KIN ISAAC on 06/13/21 1113 Levofloxacin (Levofloxacin) 500 Mg Tablet, 500 MG PO DAILY Prescribed by: DALE DESOUZA on 07/08/22 1226 Metronidazole (Metronidazole) 500 Mg Tablet, 500 MG PO QID Prescribed by: DALE DESOUZA on 03/13/23 2214 Nitrofurantoin Monohyd/M-Cryst (Macrobid 100 mg Capsule) 100 Mg Capsule, 1 TAB PO BID WITH MEALS Prescribed by: SARA BEGUM on 09/05/20 0857 Pseudoephedrine HCl (Sudafed 12 Hour) 120 Mg Tablet.er, 120 MG PO BID PRN for CONGESTION Prescribed by: KIN ISAAC on 06/13/21 1115 Tamsulosin HCl (Flomax) 0.4 Mg Cap, 0.4 MG PO DAILY Prescribed by: GENI RODRIGUEZ on 08/14/20 0819 Tamsulosin HCl (Flomax) 0.4 Mg Cap, 0.4 MG PO DAILY Prescribed by: SARA BEGUM on 09/05/20 0857 Tramadol HCl (Tramadol HCl) 50 Mg Tablet, 50 MG PO Q4H PRN for PAIN-MODERATE (5- 7) Prescribed by: SARA BEGUM on 09/05/20 0857 Tramadol HCl (Tramadol HCl) 50 Mg Tablet, 50 MG PO Q4H Prescribed by: DALE DESOUZA on 03/13/23 2214 Review of Systems Constitutional: see HPI Respiratory: no symptoms reported Cardiovascular: no symptoms reported Skin: lesions, other (rash to feet with sores) Past Acrqplm-Sxodvy-Xixaau Hx Patient Social History Tobacco Use?: Yes Smoking Status: Current Everyday Smoker Use of E-Cig and/or Vaping dev: No Substance use?: No Alcohol Use?: Yes Alcohol Frequency: Couple times a week Pt feels they are or have been: No Immunizations Up To Date Tetanus Booster (TDap): Less than 5yrs PED Vaccines UTD: Yes First/Initial COVID19 Vaccinat: 05/31/21 Second COVID19 Vaccination Supa: 05/31/21 Third COVID19 Vaccination Date: 05/31/21 Seasonal Allergies Seasonal Allergies: No Past Medical History Surgery/Hospitalization HX: ACL, LITHOTRISPY Surgeries: Yes (KIDNEY STONE BASKET REMOVAL x 2, LITHOTRIPSY X 4; ACL repair) Orthopedic, Renal Respiratory: No Currently Using CPAP: No Currently Using BIPAP: No Cardiac: Yes Hypertension Neurological: No Reproductive Disorders: No HIV/AIDS: No Genitourinary: Yes Kidney Stones Gastrointestinal: No Musculoskeletal: No Endocrine: No HEENT: No Cancer: No Psychosocial: No Integumentary: No Blood Disorders: No Family Medical History No Pertinent Family Hx SOCIAL HISTORY: -SMOKES 1 PPD -ETOH--"COUPLE OF DRINKS" DAILY -DRUGS--DENIES USE Physical Exam Vital Signs Vital Signs - First Documented 04/17/23 08:17 Temp 36.9 Pulse 89 Resp 16 B/P (MAP) 183/116 (138) Pulse Ox 97 O2 Delivery Room Air Capillary Refill : Less Than 3 Seconds Height, Weight, BMI Height: 5'6.00" Weight: 230lbs. oz. 104.920278hb; 39.00 BMI Method:Stated General Appearance: WD/WN, no apparent distress HEENT: PERRL/EOMI Cardiovascular: regular rate, rhythm Respiratory: lungs clear, normal breath sounds, no respiratory distress, no accessory muscle use Hips: bilateral hip normal range of motion Legs: bilateral leg normal range of motion Knees: bilateral knee normal range of motion Ankles: bilateral ankle non-tender, bilateral ankle normal inspection, bilateral ankle normal range of motion Feet: bilateral foot normal range of motion, bilateral foot pain, bilateral foot soft tissue tenderness, bilateral foot swelling Neurologic/Tendon: normal sensation, normal motor functions Neurologic/Psychiatric: alert, normal mood/affect, oriented x 3 Skin: normal color, warm/dry, other (patient has erythema and swelling to plantar surface both feet, erythema toes; no lesions between the toes; left foot at the instep multiple ulcerative/papular wounds, ttp; each leason about 2-3mm. no drainage. Right foot plantar surface at mid foot - ulcerative leasion about 2.5cm in diameter. ttp) Progress/Results/Core Measures Results/Orders My Orders Orders - TICO GABRIEL MD Ketorolac Injection (Ketorolac Injection (04/17/23 09:00) Vital Signs/I&O 04/17/23 04/17/23 08:17 09:10 Temp 36.9 Pulse 89 Resp 16 B/P (MAP) 183/116 (138) 163/99 Pulse Ox 97 O2 Delivery Room Air Blood Pressure Mean: 138 Progress Progress Note : Time: 09:05 Progress Note Patient seen and evaluated by me. Evaluation today includes history and physical exam. Pertinent physical exam finding includes well-developed well- nourished obese male in no acute distress. He has erythema to the plantar surfa ce of both feet with maculopapular rash. Rash has irregular margins along the plantar surface. No lesions noted between the toes. No drainage. No erythema extending over the dorsum of the foot or up the ankles. Rash is most consistent with a fungal type etiology. Differential diagnosis tenia pedis, cellulitis Patient's exam most consistent with tinea pedis. He has been using an antifungal cream sporadically. Advised to use miconazole/clotrimazole or equivalent twice a day consistently for 2 to 4 weeks. I am also giving him a prescription for Diflucan 200 mg tablets to take once a week for 3 weeks. He is instructed on keeping his feet clean and dry and also treating his shoes. Return precautions provided. I encouraged him to follow-up with his primary care physician. All questions are sought and answered. Patient is stable for discharge. Departure Impression Primary Impression: Tinea pedis of both feet Disposition: 01 HOME, SELF-CARE Condition: Stable Departure-Patient Inst. Decision time for Depature: 08:57 Referrals: [facility] (PCP/Family) Primary Care Physician Patient Instructions: Athlete's Foot Add. Discharge Instructions: You need to use an over the counter Anti-fungal cream such as MICONAZOLE to both feet and between the toes, twice daily for 3-4 weeks. Take the Diflucan tablet, once a week for 3 weeks starting today. Be sure and dry your feet thoroughly after every shower/soak - pay special attention to between the toes. You will need to treat your shoes as well with a Miconazole foot spray or powder. Naproxen 500mg tablets, with food, twice a day for pain as needed. Return to the Emergency Department for any new, concerning or emergent c omplaints. Scripts Fluconazole (Diflucan) 200 Mg Tablet 200 MG PO once a week, #3 TAB Prov: TICO GABRIEL MD 04/17/23 Copy Copies To 1: VASQUEZ DICKERSON KATHRYN M MD Apr 17, 2023 08:40
[2023-04-17] MEDS ORDERED: KETOROLAC INJ 60 MG/2 ML VIAL IM ONE (09:00)
[2023-04-17] MEDS ORDERED: FLUC200T PO (09:04)
[2023-04-17 09:10] VITALS: BP 163/99
[2023-04-18] MEDS ORDERED: NAPR-915 PO (11:09)
== END 2023-04-17 09:10 | disposition home or self-care (01) ==
LOC: EDUNIT# 08:10 → ER 08:12
DX: B35.3 Tinea pedis (principal); F17.210 Nicotine dependence, cigarettes, uncomplicated; E66.9 Obesity, unspecified; Z68.39 Body mass index [BMI] 39.0-39.9, adult
CPT/HCPCS: 99284